=== PATIENT | male | born 1945 | race Asian ===

== ENCOUNTER 2017-04-22 15:38 | Observation (INO) | END 2017-04-24 11:00 | disposition home or self-care (01) ==

== ENCOUNTER 2017-11-05 15:40 | Inpatient (IN) | END 2017-11-10 16:53 | disposition home or self-care (01) | DRG 183 ==

== ENCOUNTER 2018-09-04 21:51 | Inpatient (IN) | payer MEDICARE, OTHER ==
[~2018-09-04] VITALS: Ht 185.4 cm; Wt 74.3 kg
[~2018-09-04 21:51] MED LIST: ATOR40TA68 PO; CANA1TAB3 PO; CLOP75TA27 PO; DUTA0.5C PO; FAMO20TA18 PO; ICOS1CAP PO; ISOS30TA67 PO; METO-335 PO; RANO10002 PO; SITA100T11 PO; VALS80TA2 PO
--- NOTE | 2018-09-04 22:12 | ERD ---
ER Documentation Chief Complaint Chief Complaint CP that HPI This is a 73-year-old male with a history of diabetes, and coronary disease who presents for evaluation of chest pain. Patient states that his symptoms have been exertional on and off for the last 3 days. When they occur they last several minutes, he denies any shortness of breath, he has not had any wheezing, no leg swelling. He does endorse some palpitations. He does not know if he has a history of atrial fibrillation. ROS All systems reviewed and are negative except as per history of present illness. Medications Home Meds Reported Medications Dutasteride* (Avodart*) 0.5 Mg Capsule, 0.5 MG PO DAILY, CAP 04/22/17 Sitagliptin* (Januvia*) 100 Mg Tablet, 100 MG PO DAILY, #30 TAB 04/22/17 Ranolazine* (Ranexa*) 1,000 Mg Tab.sr.12h, 1000 MG PO Q12, TAB 04/22/17 Icosapent Ethyl (VASCEPA) 1 Gm Capsule, 1 GM PO TID, CAP 04/22/17 Canagliflozin/Metformin HCl (Invokamet 150-500 mg Tablet) 1 Each Tablet, 1 EACH PO BID, #60 TAB 04/22/17 Valsartan* (Diovan*) 80 Mg Tablet, 80 MG PO DAILY, TAB 04/22/17 Metoprolol Succinate* (Toprol XL*) 25 Mg Tab.sr.24h, 25 MG PO DAILY, #30 TAB 04/22/17 Isosorbide Mononitrate* (Isosorbide Mononitrate*) 30 Mg Tab.er.24h, 30 MG PO D AILY, TAB 04/22/17 Famotidine* (Famotidine*) 20 Mg Tablet, 20 MG PO DAILY, #30 TAB 04/22/17 Clopidogrel Bisulfate (Clopidogrel) 75 Mg Tablet, 75 MG PO DAILY, #30 TAB 04/22/17 Atorvastatin* (Atorvastatin*) 40 Mg Tablet, 40 MG PO QHS, #30 TAB 04/22/17 Allergies Allergies: Coded Allergies: No Known Allergy (Verified , 12/02/11) PMhx/Soc History of Surgery: Yes (ANGIOGRAM THREE TIMES) Anesthesia Reaction: No Hx Neurological Disorder: No Hx Respiratory Disorders: No Hx Cardiac Disorders: No (HTN) Hx Psychiatric Problems: No Hx Miscellaneous Medical Probl: No Hx Alcohol Use: No Hx Substance Use: No Hx Tobacco Use: No Physical Exam Vitals Vital Signs Date Temp Pulse Resp B/P (MAP) Pulse Ox O2 O2 Flow FiO2 Time Delivery Rate 09/04/18 97.8 80 14 126/75 100 22:59 (92) 09/04/18 Nasal 2 22:23 Cannula 09/04/18 97.8 135 20 148/60 100 22:20 (89) 09/04/18 97.8 130 20 117/80 100 21:55 (92) Physical Exam Const: No acute distress Head: Atraumatic Eyes: Normal Conjunctiva ENT: Normal External Ears, Nose and Mouth. Neck: Full range of motion. No meningismus. Resp: Clear to auscultation bilaterally, no wheezes rales or rhonchi Cardio: Irregularly irregular, no murmurs Abd: Soft, non tender, non distended. Normal bowel sounds Skin: No petechiae or rashes Back: No midline or flank tenderness Ext: No cyanosis, or edema Neur: Awake and alert Psych: Normal Mood and Affect Result Diagram: 09/04/185 09/04/182214 Results 24 hrs Laboratory Tests Test 09/04/18 22:15 White Blood Count 5.9 10^3/ul Red Blood Count 5.00 10^6/ul Hemoglobin 14.6 g/dl Hematocrit 43.4 % Mean Corpuscular Volume 86.8 fl Mean Corpuscular Hemoglobin 29.2 pg Mean Corpuscular Hemoglobin Concent 33.6 g/dl Red Cell Distribution Width 13.2 % Platelet Count 179 10^3/UL Mean Platelet Volume 9.9 fl Immature Granulocytes % 0.300 % Neutrophils % 55.7 % Lymphocytes % 31.6 % Monocytes % 10.9 % Eosinophils % 1.2 % Basophils % 0.3 % Nucleated Red Blood Cells % 0.0 /100WBC Immature Granulocytes # 0.020 10^3/ul Neutrophils # 3.3 10^3/ul Lymphocytes # 1.9 10^3/ul Monocytes # 0.6 10^3/ul Eosinophils # 0.1 10^3/ul Basophils # 0.0 10^3/ul Nucleated Red Blood Cells # 0.0 10^3/ul Prothrombin Time 13.4 Sec Prothrombin Time Ratio 1.0 INR International Normalized Ratio 1.01 Sodium Level 139 mmol/L Potassium Level 4.2 mmol/L Chloride Level 102 mmol/L Carbon Dioxide Level 23 mmol/L Anion Gap 14 Blood Urea Nitrogen 14 mg/dl Creatinine 0.79 mg/dl Est Glomerular Filtrat Rate mL/min mL/min Glucose Level 151 mg/dl Calcium Level 9.9 mg/dl Total Bilirubin 0.6 mg/dl Direct Bilirubin 0.00 mg/dl Indirect Bilirubin 0.6 mg/dl Aspartate Amino Transf (AST/SGOT) 24 IU/L Alanine Aminotransferase (ALT/SGPT) 20 IU/L Alkaline Phosphatase 87 IU/L Troponin I < 0.012 ng/ml B-Type Natriuretic Peptide 158 PG/ML Total Protein 7.6 g/dl Albumin 4.5 g/dl Globulin 3.10 g/dl Albumin/Globulin Ratio 1.45 Current Medications Medications Dose Sig/Ken[place] Start Time Status Last (Trade) Ordered Route PRN Stop Time Admin Dose Reason Admin Aspirin 325 mg ONCE STAT 09/04/18 DC 09/04/18 (Aspirin) PO 22:38 22:43 09/04/18 22:39 Procedures/MDM This is a 73-year-old male who presents for evaluation of intermittent chest pain palpitations. His chest pain improved in the ED, he has a very strong history of coronary artery disease, thus he will require admission for acute coronary syndrome work-up, is unclear via history of atrial fibrillation, as the patient is a poor historian. His primary money room supervisor is Dr Laureano. by., patient will be admitted to telemetry. Accepting Care Team: Current data and ongoing care discussed. Primary: Brian Consulting: None Outstanding Data: none EKG: Rate/Rhythm: Irregularly irregular rate, with rate of 132 QRS, ST, T-waves: No changes consistent w/ acute ischemia Impression: No evidence of ischemia atrial fibrillation noted Departure Diagnosis: Primary Impression: Chest pain Chest pain type: unspecified Qualified Codes: R07.9 - Chest pain, unspecified Condition: Stable TWYLA BOSS MD Sep 04, 2018 22:12
[2018-09-04] MEDS ORDERED: ASPIRIN 325 MG TAB PO STA (22:38)
[2018-09-05] MEDS ORDERED: HEPARIN 25000 UNITS/250 ML 250 ML IV ONE (00:34)
[2018-09-05] MEDS ORDERED: HEPARIN 1000 UNITS/ML 10 ML INJ IV ONE (00:37)
[2018-09-05] MEDS ORDERED: ONDANSETRON 4 MG INJ IV PRN (01:00)
[2018-09-05] MEDS ORDERED: ACETAMINOPHEN 325 MG TAB PO PRN (01:00)
[2018-09-05 02:30] VITALS: BP 138/70; PULSE 69; RESP 20
[2018-09-05 03:03] VITALS: Ht 185.4 cm; Wt 74.3 kg
[2018-09-05 04:00] VITALS: BP 108/60; PULSE 67; RESP 20
[2018-09-05 07:09] VITALS: BP 150/64; PULSE 67; RESP 19
--- NOTE | 2018-09-05 09:51 | HP ---
Date/Time of Note Date/Time of Note DATE: 09/05/18 TIME: 09:48 Assessment/Plan VTE Prophylaxis Risk score (from [facility])>0 risk: 2 SCD applied (from [facility]): No SCD contraindicated: other Pharmacological prophylaxis: LMWH Lines/Catheters IV Catheter Type (from [facility]): Saline Lock Assessment/Plan Hospital Course 1) chest pain - troponins are negative - cardiology consult 2) diabetes - monitor blood sugar - continue home meds 3) hypertension - blood pressure stable Result Diagram: 09/05/18 0545 09/05/18 0544 Results 24hrs Laboratory Tests Test 09/04/18 22:15 09/05/18 05:44 09/05/18 05:45 White Blood Count 5.9 # 3.8 #L Red Blood Count 5.00 4.58 L Hemoglobin 14.6 13.6 L Hematocrit 43.4 40.1 L Mean Corpuscular Volume 86.8 87.6 Mean Corpuscular Hemoglobin 29.2 29.7 Mean Corpuscular Hemoglobin Concent 33.6 33.9 Red Cell Distribution Width 13.2 13.3 Platelet Count 179 159 Mean Platelet Volume 9.9 10.2 Immature Granulocytes % 0.300 0.300 Neutrophils % 55.7 34.9 L Lymphocytes % 31.6 50.7 Monocytes % 10.9 11.5 H Eosinophils % 1.2 2.1 Basophils % 0.3 0.5 Nucleated Red Blood Cells % 0.0 0.0 Immature Granulocytes # 0.020 0.010 Neutrophils # 3.3 1.3 L Lymphocytes # 1.9 1.9 Monocytes # 0.6 0.4 Eosinophils # 0.1 0.1 Basophils # 0.0 0.0 Nucleated Red Blood Cells # 0.0 0.0 Prothrombin Time 13.4 Prothrombin Time Ratio 1.0 INR International Normalized Ratio 1.01 Sodium Level 139 141 Potassium Level 4.2 4.0 Chloride Level 102 105 Carbon Dioxide Level 23 28 Anion Gap 14 H 8 Blood Urea Nitrogen 14 16 Creatinine 0.79 0.73 Est Glomerular Filtrat Rate mL/min Glucose Level 151 136 Calcium Level 9.9 9.4 Total Bilirubin 0.6 Direct Bilirubin 0.00 Indirect Bilirubin 0.6 Aspartate Amino Transf (AST/SGOT) 24 Alanine Aminotransferase (ALT/SGPT) 20 Alkaline Phosphatase 87 Troponin I < 0.012 < 0.012 B-Type Natriuretic Peptide 158 H Total Protein 7.6 Albumin 4.5 Globulin 3.10 Albumin/Globulin Ratio 1.45 Creatine Kinase 42 Creatine Kinase Index 2.2 Creatinine Kinase MB (Mass) 0.94 HPI/ROS Admit Date/Time Admit Date/Time Sep 05, 2018 at 01:41 Hx of Present Illness Patient with hypertension, hypercholesterolemia, diabetes with history of coronary artery disease comes in to the emergency with pressure chest pain x1d. Patient has had previous admissions for the same and was treated with angioplasty and stent placement in the past. Patient currently denies any chest pain. PMH/Family/Social Past Medical History Medical History: diabetes, high cholesterol, hypertension Medications Current Medications Atorvastatin Calcium (Lipitor) 40 mg QHS PO ; Start 09/05/18 at 21:00 Clopidogrel Bisulfate (plaVIX) 75 mg DAILY PO ; Start 09/05/18 at 10:00 Dutasteride (Avodart) 0.5 mg DAILY PO ; Start 09/06/18 at 10:00 Famotidine (Pepcid) 20 mg DAILY PO ; Start 09/05/18 at 10:00 Isosorbide Mononitrate (Imdur) 30 mg DAILY PO ; Start 09/05/18 at 10:00 Metoprolol Succinate (Toprol Xl) 25 mg DAILY PO ; Start 09/05/18 at 10:00 Ranolazine (Ranexa) 1,000 mg Q12 PO ; Start 09/05/18 at 10:00 Linagliptin (Tradjenta) 5 mg DAILY PO ; Start 09/05/18 at 10:00 Losartan Potassium (Cozaar) 50 mg DAILY PO ; Start 09/05/18 at 10:00 Coded Allergies: No Known Allergy (Verified , 12/02/11) Family History Significant Family History: COPD, diabetes Social History Smoking Status: Never smoker Exam/Review of Systems Vital Signs Vitals Vital Signs Date Temp Pulse Resp B/P (MAP) Pulse Ox O2 O2 Flow FiO2 Time Delivery Rate 09/05/18 Nasal 2.0 07:40 Cannula 09/05/18 98.1 67 19 150/64 98 07:09 (92) Intake and Output 09/04/18 09/04/18 09/05/18 1515:00 23:00 07:00 IntakeIntake Total 0 ml OutputOutput Total 700 ml BalanceBalance -700 ml Exam Constitutional: well developed Head: normocephalic, atraumatic Neck: supple Respiratory: clear to auscultation Cardiovascular: regular rate and rhythm Gastrointestinal: soft, non-tender Extremities: normal pulses SAMSON FREEMAN Sep 05, 2018 09:51
[2018-09-05] MEDS: RANOLAZINE (SR) 500 MG TAB PO SCH ×2 (10:06→21:04)
[2018-09-05] MEDS: ISOSORBIDE MONONITRATE(SR)30 MG TAB PO SCH (10:07)
[2018-09-05] MEDS: CLOPIDOGREL 75 MG TAB PO SCH (10:07)
[2018-09-05] MEDS: LOSARTAN 50 MG TAB PO SCH (10:07)
[2018-09-05] MEDS: FAMOTIDINE 20 MG TAB PO SCH (10:07)
[2018-09-05] MEDS: METOPROLOL (XL) 25 MG TAB PO SCH (10:07)
[2018-09-05] MEDS: LINAGLIPTIN 5 MG TABLET PO SCH (10:07)
[2018-09-05 11:05] VITALS: BP 119/59; PULSE 70; RESP 20
[2018-09-05] MEDS: INSULIN ASPART [NOVOLOG] 3 ML PEN SC SCH ×2 (12:11→16:45)
[2018-09-05 15:00] VITALS: BP 99/54; PULSE 69; RESP 18
--- NOTE | 2018-09-05 15:33 | CONS ---
Assessment/Plan Assessment/Plan Hospital Course (Demo Recall) 1. Atrial fibrillation with ventricular response: Appears to be short episode has converted back to sinus rhythm. 2. Chest pain most likely related to above 3. Coronary artery disease 4. History of PCI 5. Hypertension 6. Diabetes 7. Dyslipidemia Recommendation: Continue with the beta-kiana. Continue with antiplatelet with Plavix for now Statin will be continued AK has been ruled out Echo has already been done as an outpatient in the office that showed normal LV systolic function Diabetic management as per internal medicine Electrolyte to be corrected as needed We will monitor on telemetry for now. DC planning tomorrow if remains stable Thank you for his referral. We will continue to follow along with you SURESH WESTBROOK MD [facility] Consultation Date/Type/Reason Admit Date/Time Sep 05, 2018 at 01:41 Date of Consultation: Sep 05, 2018 Type of Consult Cardiology Reason for Consultation CHEST PAIN AFIB. Requesting Provider: SAMSON FREEMAN Date/Time of Note DATE: 09/05/18 TIME: 15:22 Hx of Present Illness Interventional cardiology consultation note Chief complaint: Chest pain Reason for consult: chest pain and AFIB. History of present illness: Thank you for this referral. 73-year-old [place] gentleman who is very well-known to me from office visit as well as outpatient work-up who presented to emergency room last night with complaint of chest pain. Patient with no palpitation but had complaint of chest pain yesterday came in was noted to be in atrial fibrillation rapid ventricular response. Patient has converted in the emergency room to sinus rhy thm but since then has remained in sinus rhythm. His chest pain also resolved in the emergency room as well. Troponin have been negative so far. He reports to me that he has been able to walk quite a bit with no chest pain or pressure. He said that his medications were changed with his primary care physician recently but has not followed all those changes recently Allergies: No known drug allergies Past medical history: 1. Coronary artery disease with history of myocardial infarction, history of PCI of the obtuse marginal and LAD 2. Diabetes 3. Hypertension 4. Dyslipidemia 5. History of chronic chest pain past surgical history: 12/02/11: Left heart catheterization/coronary angiogram showed: Left main with 30-40% distal calcified lesion. LAD approximately 40-50% stenosis of the mid level 30% in stent stenosis. Left cecum the stent was patent. RCA was dominant with about 40% stenosis. 02/18/11: PCI obtuse marginal #2.5 x 8 mm Promus drug-eluting stent PCI of the LAD 3 x 33 mm and 2.75 x 33 mm Cypher drug-eluting stent In about year of 1999 he also had another PCI of unknown vessel Family history: His father had an AK in his 70s Social history patient does not smoke or drink Medications were reviewed as per medical reconciliation sheet Review of system: Patient denies all others except for above-mentioned Past Medical History Home Meds Reported Medications Dutasteride* (Avodart*) 0.5 Mg Capsule, 0.5 MG PO DAILY, CAP 04/22/17 Sitagliptin* (Januvia*) 100 Mg Tablet, 100 MG PO DAILY, #30 TAB 04/22/17 Ranolazine* (Ranexa*) 1,000 Mg Tab.sr.12h, 1000 MG PO Q12, TAB 04/22/17 Icosapent Ethyl (VASCEPA) 1 Gm Capsule, 1 GM PO TID, CAP 04/22/17 Canagliflozin/Metformin HCl (Invokamet 150-500 mg Tablet) 1 Each Tablet, 1 EACH PO BID, #60 TAB 04/22/17 Valsartan* (Diovan*) 80 Mg Tablet, 80 MG PO DAILY, TAB 04/22/17 Metoprolol Succinate* (Toprol XL*) 25 Mg Tab.sr.24h, 25 MG PO DAILY, #30 TAB 04/22/17 Isosorbide Mononitrate* (Isosorbide Mononitrate*) 30 Mg Tab.er.24h, 30 MG PO DAILY, TAB 04/22/17 Famotidine* (Famotidine*) 20 Mg Tablet, 20 MG PO DAILY, #30 TAB 04/22/17 Clopidogrel Bisulfate (Clopidogrel) 75 Mg Tablet, 75 MG PO DAILY, #30 TAB 04/22/17 Atorvastatin* (Atorvastatin*) 40 Mg Tablet, 40 MG PO QHS, #30 TAB 04/22/17 Medications Current Medications Atorvastatin Calcium (Lipitor) 40 mg QHS PO ; Start 09/05/18 at 21:00 Clopidogrel Bisulfate (plaVIX) 75 mg DAILY PO Last administered on 09/05/18at 10:07; Admin Dose 75 MG; Start 09/05/18 at 10:00 Dutasteride (Avodart) 0.5 mg DAILY PO ; Start 09/06/18 at 10:00 Famotidine (Pepcid) 20 mg DAILY PO Last administered on 09/05/18at 10:07; Admin Dose 20 MG; Start 09/05/18 at 10:00 Isosorbide Mononitrate (Imdur) 30 mg DAILY PO Last administered on 09/05/18at 10:07; Admin Dose 30 MG; Start 09/05/18 at 10:00 Metoprolol Succinate (Toprol Xl) 25 mg DAILY PO Last administered on 09/05/18 10:07; Admin Dose 25 MG; Start 09/05/18 at 10:00 Ranolazine (Ranexa) 1,000 mg Q12 PO Last administered on 09/05/18 10:06; Admin Dose 1,000 MG; Start 09/05/18 at 10:00 Linagliptin (Tradjenta) 5 mg DAILY PO Last administered on 09/05/18 10:07; Admin Dose 5 MG; Start 09/05/18 at 10:00 Losartan Potassium (Cozaar) 50 mg DAILY PO Last administered on 09/05/18 10:07; Admin Dose 50 MG; Start 09/05/18 at 10:00 Diagnostic Test (Pha) (Accu-Chek) 1 ea 02 XX ; Start 09/06/18 at 02:00 Insulin Aspart (Novolog Insulin Pen) 5 unit WITH MEALS SC Last administered on 09/05/18at 12:11; Admin Dose 5 UNIT; Start 09/05/18 at 12:00 Enoxaparin Sodium (Lovenox) 30 mg DAILY SC ; Start 09/06/18 at 09:00 Allergies: Coded Allergies: No Known Allergy (Verified , 12/02/11) Social History Smoking Status: Never smoker Exam/Review of Systems Vital Signs Vitals Vital Signs Date Temp Pulse Resp B/P (MAP) Pulse Ox O2 O2 Flow FiO2 Time Delivery Rate 09/05/18 98.7 69 18 99/54 (69) 98 Room Air 15:00 09/05/18 2.0 07:40 Intake and Output 09/04/18 09/04/18 09/05/18 1515:00 23:00 07:00 IntakeIntake Total 0 ml OutputOutput Total 700 ml BalanceBalance -700 ml Exam Exam General: no acute distress HEENT: NC/AT. pupils are equal. round. NECK: NO JVD. no stridor. CV: RRR. systolic murmur; no gallop or rubs. PULM: no wheezing or rhonchi. GI: SOFT, NT, ND, no rebound or guarding Extremity: trace B/L LE edema. no clubbing. neuro: awake and alert, OX3. Psych: calm and pleasant rectal: deferred : normal EKG was personally with atrial fibrillation RVR nonspecific T wave abnormalities Labs Result Diagram: 09/05/18 0545 09/05/18 0544 Results 24hrs Laboratory Tests Test 09/04/18 22:15 09/05/18 05:44 09/05/18 05:45 09/05/18 10:10 White Blood Count 5.9 # 3.8 #L Red Blood Count 5.00 4.58 L Hemoglobin 14.6 13.6 L Hematocrit 43.4 40.1 L Mean Corpuscular 86.8 87.6 Volume Mean Corpuscular 29.2 29.7 Hemoglobin Mean Corpuscular 33.6 33.9 Hemoglobin Concent Red Cell 13.2 13.3 Distribution Width Platelet Count 179 159 Mean Platelet Volume 9.9 10.2 Immature 0.300 0.300 Granulocytes % Neutrophils % 55.7 34.9 L Lymphocytes % 31.6 50.7 Monocytes % 10.9 11.5 H Eosinophils % 1.2 2.1 Basophils % 0.3 0.5 Nucleated Red Blood 0.0 0.0 Cells % Immature 0.020 0.010 Granulocytes # Neutrophils # 3.3 1.3 L Lymphocytes # 1.9 1.9 Monocytes # 0.6 0.4 Eosinophils # 0.1 0.1 Basophils # 0.0 0.0 Nucleated Red Blood 0.0 0.0 Cells # Prothrombin Time 13.4 Prothrombin Time 1.0 Ratio INR International 1.01 Normalized Ratio Sodium Level 139 141 Potassium Level 4.2 4.0 Chloride Level 102 105 Carbon Dioxide Level 23 28 Anion Gap 14 H 8 Blood Urea Nitrogen 14 16 Creatinine 0.79 0.73 Est Glomerular Filtrat Rate mL/min Glucose Level 151 136 Calcium Level 9.9 9.4 Total Bilirubin 0.6 Direct Bilirubin 0.00 Indirect Bilirubin 0.6 Aspartate Amino 24 Transf (AST/SGOT) Alanine 20 Aminotransferase (AL T/SGPT) Alkaline Phosphatase 87 Troponin I < 0.012 < 0.012 < 0.012 B-Type Natriuretic 158 H Peptide Total Protein 7.6 Albumin 4.5 Globulin 3.10 Albumin/Globulin 1.45 Ratio Creatine Kinase 42 34 Creatine Kinase 2.2 2.0 Index Creatinine Kinase MB 0.94 0.69 (Mass) Test 09/05/18 11:48 Bedside Glucose 203 Medications Medications Current Medications Atorvastatin Calcium (Lipitor) 40 mg QHS PO ; Start 09/05/18 at 21:00 Clopidogrel Bisulfate (plaVIX) 75 mg DAILY PO Last administered on 09/05/18at 10:07; Admin Dose 75 MG; Start 09/05/18 at 10:00 Dutasteride (Avodart) 0.5 mg DAILY PO ; Start 09/06/18 at 10:00 Famotidine (Pepcid) 20 mg DAILY PO Last administered on 09/05/18at 10:07; Admin Dose 20 MG; Start 09/05/18 at 10:00 Isosorbide Mononitrate (Imdur) 30 mg DAILY PO Last administered on 09/05/18at 10:07; Admin Dose 30 MG; Start 09/05/18 at 10:00 Metoprolol Succinate (Toprol Xl) 25 mg DAILY PO Last administered on 09/05/18 10:07; Admin Dose 25 MG; Start 09/05/18 at 10:00 Ranolazine (Ranexa) 1,000 mg Q12 PO Last administered on 09/05/18at 10:06; Admin Dose 1,000 MG; Start 09/05/18 at 10:00 Linagliptin (Tradjenta) 5 mg DAILY PO Last administered on 09/05/18 10:07; Admin Dose 5 MG; Start 09/05/18 at 10:00 Losartan Potassium (Cozaar) 50 mg DAILY PO Last administered on 09/05/18 10:07; Admin Dose 50 MG; Start 09/05/18 at 10:00 Diagnostic Test (Pha) (Accu-Chek) 1 ea 02 XX ; Start 09/06/18 at 02:00 Insulin Aspart (Novolog Insulin Pen) 5 unit WITH MEALS SC Last administered on 09/05/18at 12:11; Admin Dose 5 UNIT; Start 09/05/18 at 12:00 Enoxaparin Sodium (Lovenox) 30 mg DAILY SC ; Start 09/06/18 at 09:00 SURESH WESTBROOK MD Sep 05, 2018 15:33
[2018-09-05 20:00] VITALS: BP 92/54; PULSE 69; RESP 20
[2018-09-05] MEDS: ATORVASTATIN 40 MG TAB PO SCH (21:04)
[2018-09-06] VITALS (7 sets, daily range): BP systolic 92–133; BP diastolic 55–64; PULSE 57–66; RESP 18–20
[2018-09-06] MEDS: ACCU-CHEK XX SCH (02:00)
[2018-09-06] MEDS: LOSARTAN 50 MG TAB PO SCH (07:55)
[2018-09-06] MEDS: FAMOTIDINE 20 MG TAB PO SCH (07:56)
[2018-09-06] MEDS: LINAGLIPTIN 5 MG TABLET PO SCH (07:56)
[2018-09-06] MEDS: RANOLAZINE (SR) 500 MG TAB PO SCH ×2 (07:56→21:30)
[2018-09-06] MEDS: METOPROLOL (XL) 25 MG TAB PO SCH (07:56)
[2018-09-06] MEDS: CLOPIDOGREL 75 MG TAB PO SCH (07:57)
[2018-09-06] MEDS: ISOSORBIDE MONONITRATE(SR)30 MG TAB PO SCH (07:57)
[2018-09-06] MEDS: INSULIN ASPART [NOVOLOG] 3 ML PEN SC SCH ×3 (08:11→16:58)
[2018-09-06] MEDS ORDERED: NON-FORMULARY/PATIENT OWN MED (Valsartan* (Diovan*) 80 MG) PO SCH (09:00)
[2018-09-06] MEDS ORDERED: NON-FORMULARY/PATIENT OWN MED (Sitagliptin* (Januvia*) 100 MG) PO SCH (09:00)
[2018-09-06] MEDS: DUTASTERIDE 0.5 MG CAP PO SCH (09:57)
[2018-09-06] MEDS: ENOXAPARIN 30 MG/0.3 ML SYG SC SCH (10:00)
--- NOTE | 2018-09-06 10:55 | PN ---
Date/Time of Note Date/Time of Note DATE: 09/06/18 TIME: 10:54 Assessment/Plan VTE Prophylaxis Risk score (from Ns)>0 risk: 2 SCD applied (from Ns): Yes Pharmacological prophylaxis: LMWH Lines/Catheters IV Catheter Type (from Nrsg): Saline Lock Assessment/Plan Hospital Course 1) chest pain - troponins are negative - appreciate cardiac input 2) diabetes - monitor blood sugar - continue home meds 3) hypertension - blood pressure stable Result Diagram: 09/06/18 0500 09/06/18 0500 Results 24hrs Laboratory Tests Test 09/05/18 11:48 09/05/18 16:42 09/05/18 21:03 09/06/18 02:27 Bedside Glucose 203 135 134 174 Test 09/06/18 05:00 09/06/18 07:55 White Blood Count 4.5 L Red Blood Count 4.67 L Hemoglobin 13.7 L Hematocrit 40.9 L Mean Corpuscular 87.6 Volume Mean Corpuscular 29.3 Hemoglobin Mean Corpuscular 33.5 Hemoglobin Concent Red Cell 13.7 Distribution Width Platelet Count 183 Mean Platelet Volume 10.5 H Immature 0.400 Granulocytes % Neutrophils % 40.7 Lymphocytes % 44.2 Monocytes % 12.9 H Eosinophils % 1.6 Basophils % 0.2 Nucleated Red Blood 0.0 Cells % Immature 0.020 Granulocytes # Neutrophils # 1.8 Lymphocytes # 2.0 Monocytes # 0.6 Eosinophils # 0.1 Basophils # 0.0 Nucleated Red Blood 0.0 Cells # Sodium Level 141 Potassium Level 4.2 Chloride Level 102 Carbon Dioxide Level 26 Anion Gap 13 Blood Urea Nitrogen 18 Creatinine 0.71 Est Glomerular Filtrat Rate mL/min Glucose Level 125 Calcium Level 9.6 Magnesium Level 2.0 Total Bilirubin 0.5 Direct Bilirubin 0.00 Indirect Bilirubin 0.5 Aspartate Amino 18 Transf (AST/SGOT) Alanine 17 Aminotransferase (AL T/SGPT) Alkaline Phosphatase 75 Creatine Kinase 26 Creatine Kinase 1.4 Index Creatinine Kinase MB 0.36 (Mass) Troponin I < 0.012 B-Type Natriuretic 65 Peptide Total Protein 6.6 # Albumin 3.9 Globulin 2.70 Albumin/Globulin 1.44 Ratio Triglycerides Level 122 Cholesterol Level 114 LDL Cholesterol, 50 Calculated HDL Cholesterol 40 Cholesterol/HDL 2.8 Ratio Thyroid Stimulating 2.180 Hormone (TSH) Free Thyroxine 0.95 Bedside Glucose 136 Subjective 24 Hr Interval Summary Free Text/Dictation Patient complains of dizziness and still have intermittent chest pains Exam/Review of Systems Exam Vitals Vital Signs Date Temp Pulse Resp B/P (MAP) Pulse Ox O2 O2 Flow FiO2 Time Delivery Rate 09/06/18 Nasal 2.0 07:12 Cannula 09/06/18 98.1 57 20 103/55 99 07:10 (71) Intake and Output 09/05/18 09/05/18 09/06/18 1515:00 23:00 07:00 IntakeIntake Total 1800 ml 50 ml OutputOutput Total 1301 ml 1 ml BalanceBalance 499 ml 49 ml Constitutional: well developed Head: normocephalic, atraumatic Neck: supple Respiratory: diminished breath sounds Cardiovascular: regular rate and rhythm Gastrointestinal: soft, non-tender Extremities: normal pulses Results Results 24hrs Laboratory Tests Test 09/05/18 11:48 09/05/18 16:42 09/05/18 21:03 09/06/18 02:27 Bedside Glucose 203 135 134 174 Test 09/06/18 05:00 09/06/18 07:55 White Blood Count 4.5 L Red Blood Count 4.67 L Hemoglobin 13.7 L Hematocrit 40.9 L Mean Corpuscular 87.6 Volume Mean Corpuscular 29.3 Hemoglobin Mean Corpuscular 33.5 Hemoglobin Concent Red Cell 13.7 Distribution Width Platelet Count 183 Mean Platelet Volume 10.5 H Immature 0.400 Granulocytes % Neutrophils % 40.7 Lymphocytes % 44.2 Monocytes % 12.9 H Eosinophils % 1.6 Basophils % 0.2 Nucleated Red Blood 0.0 Cells % Immature 0.020 Granulocytes # Neutrophils # 1.8 Lymphocytes # 2.0 Monocytes # 0.6 Eosinophils # 0.1 Basophils # 0.0 Nucleated Red Blood 0.0 Cells # Sodium Level 141 Potassium Level 4.2 Chloride Level 102 Carbon Dioxide Level 26 Anion Gap 13 Blood Urea Nitrogen 18 Creatinine 0.71 Est Glomerular Filtrat Rate mL/min Glucose Level 125 Calcium Level 9.6 Magnesium Level 2.0 Total Bilirubin 0.5 Direct Bilirubin 0.00 Indirect Bilirubin 0.5 Aspartate Amino 18 Transf (AST/SGOT) Alanine 17 Aminotransferase (AL T/SGPT) Alkaline Phosphatase 75 Creatine Kinase 26 Creatine Kinase 1.4 Index Creatinine Kinase MB 0.36 (Mass) Troponin I < 0.012 B-Type Natriuretic 65 Peptide Total Protein 6.6 # Albumin 3.9 Globulin 2.70 Albumin/Globulin 1.44 Ratio Triglycerides Level 122 Cholesterol Level 114 LDL Cholesterol, 50 Calculated HDL Cholesterol 40 Cholesterol/HDL 2.8 Ratio Thyroid Stimulating 2.180 Hormone (TSH) Free Thyroxine 0.95 Bedside Glucose 136 Medications Medication Current Medications Atorvastatin Calcium (Lipitor) 40 mg QHS PO Last administered on 09/05/18 21:04; Admin Dose 40 MG; Start 09/05/18 at 21:00 Clopidogrel Bisulfate (plaVIX) 75 mg DAILY PO Last administered on 09/06/18 07:57; Admin Dose 75 MG; Start 09/05/18 at 10:00 Dutasteride (Avodart) 0.5 mg DAILY PO Last administered on 09/06/18 09:57; Admin Dose 0.5 MG; Start 09/06/18 at 10:00 Famotidine (Pepcid) 20 mg DAILY PO Last administered on 09/06/18 07:56; Admin Dose 20 MG; Start 09/05/18 at 10:00 Isosorbide Mononitrate (Imdur) 30 mg DAILY PO Last administered on 09/05/18 10:07; Admin Dose 30 MG; Start 09/05/18 at 10:00 Metoprolol Succinate (Toprol Xl) 25 mg DAILY PO Last administered on 09/05/18 10:07; Admin Dose 25 MG; Start 09/05/18 at 10:00 Ranolazine (Ranexa) 1,000 mg Q12 PO Last administered on 09/06/18 07:56; Admin Dose 1,000 MG; Start 09/05/18 at 10:00 Linagliptin (Tradjenta) 5 mg DAILY PO Last administered on 09/06/18 07:56; Admin Dose 5 MG; Start 09/05/18 at 10:00 Losartan Potassium (Cozaar) 50 mg DAILY PO Last administered on 09/05/18 10:07; Admin Dose 50 MG; Start 09/05/18 at 10:00 Diagnostic Test (Pha) (Accu-Chek) 1 ea 02 XX ; Start 09/06/18 at 02:00 Insulin Aspart (Novolog Insulin Pen) 5 unit WITH MEALS SC Last administered on 09/06/18 08:11; Admin Dose 5 UNIT; Start 09/05/18 at 12:00 Enoxaparin Sodium (Lovenox) 30 mg DAILY SC Last administered on 09/06/18at 10: 00; Admin Dose 30 MG; Start 09/06/18 at 09:00 SAMSON FREEMAN Sep 06, 2018 10:55
--- NOTE | 2018-09-06 13:55 | CONS ---
Consult Date/Type/Reason Admit Date/Time Sep 05, 2018 at 01:41 Initial Consult Date 09/05/18 Type of Consultation: CV Requesting Provider: SAMSON FREEMAN Date/Time of Note DATE: 09/06/18 TIME: 13:53 Subjective Cardiology follow-up progress note Subjective: Discussed with the staff and telemetry was reviewed. Patient with no chest pain or pressure. Patient however complains of palpitation this morning. Telemetry was reviewed no evidence of atrial fibrillation or significant arrhythmia during the time that he was complaining of palpitation though. Patient complains of lightheadedness when he stands up. Blood pressure has been on the low side Objective: General: no acute distress HEENT: NC/AT. pupils are equal. round. NECK: NO JVD. no stridor. CV: RRR. systolic murmur; no gallop or rubs. PULM: no wheezing or rhonchi. GI: SOFT, NT, ND, no rebound or guarding Extremity: trace B/L LE edema. no clubbing. neuro: awake and alert, OX3. Psych: Appears anxious but pleasant rectal: deferred : normal Objective Vitals Vital Signs Date Temp Pulse Resp B/P (MAP) Pulse Ox O2 O2 Flow FiO2 Time Delivery Rate 09/06/18 97.6 65 18 105/55 95 Nasal 11:08 (72) Cannula 09/06/18 2.0 07:12 Intake and Output 09/05/18 09/05/18 09/06/18 1515:00 23:00 07:00 IntakeIntake Total 1800 ml 50 ml OutputOutput Total 1301 ml 1 ml BalanceBalance 499 ml 49 ml Results/Medications Result Diagram: 09/06/18 0500 09/06/18 0500 Results 24 hrs Laboratory Tests Test 09/05/18 16:42 09/05/18 21:03 09/06/18 02:27 09/06/18 05:00 Bedside Glucose 135 134 174 White Blood Count 4.5 L Red Blood Count 4.67 L Hemoglobin 13.7 L Hematocrit 40.9 L Mean Corpuscular 87.6 Volume Mean Corpuscular 29.3 Hemoglobin Mean Corpuscular 33.5 Hemoglobin Concent Red Cell 13.7 Distribution Width Platelet Count 183 Mean Platelet Volume 10.5 H Immature 0.400 Granulocytes % Neutrophils % 40.7 Lymphocytes % 44.2 Monocytes % 12.9 H Eosinophils % 1.6 Basophils % 0.2 Nucleated Red Blood 0.0 Cells % Immature 0.020 Granulocytes # Neutrophils # 1.8 Lymphocytes # 2.0 Monocytes # 0.6 Eosinophils # 0.1 Basophils # 0.0 Nucleated Red Blood 0.0 Cells # Sodium Level 141 Potassium Level 4.2 Chloride Level 102 Carbon Dioxide Level 26 Anion Gap 13 Blood Urea Nitrogen 18 Creatinine 0.71 Est Glomerular Filtrat Rate mL/min Glucose Level 125 Calcium Level 9.6 Magnesium Level 2.0 Total Bilirubin 0.5 Direct Bilirubin 0.00 Indirect Bilirubin 0.5 Aspartate Amino 18 Transf (AST/SGOT) Alanine 17 Aminotransferase (AL T/SGPT) Alkaline Phosphatase 75 Creatine Kinase 26 Creatine Kinase 1.4 Index Creatinine Kinase MB 0.36 (Mass) Troponin I < 0.012 B-Type Natriuretic 65 Peptide Total Protein 6.6 # Albumin 3.9 Globulin 2.70 Albumin/Globulin 1.44 Ratio Triglycerides Level 122 Cholesterol Level 114 LDL Cholesterol, 50 Calculated HDL Cholesterol 40 Cholesterol/HDL 2.8 Ratio Thyroid Stimulating 2.180 Hormone (TSH) Free Thyroxine 0.95 Test 09/06/18 07:55 09/06/18 12:00 Bedside Glucose 136 145 Home Meds Reported Medications Dutasteride* (Avodart*) 0.5 Mg Capsule, 0.5 MG PO DAILY, CAP 04/22/17 Sitagliptin* (Januvia*) 100 Mg Tablet, 100 MG PO DAILY, #30 TAB 04/22/17 Ranolazine* (Ranexa*) 1,000 Mg Tab.sr.12h, 1000 MG PO Q12, TAB 04/22/17 Icosapent Ethyl (VASCEPA) 1 Gm Capsule, 1 GM PO TID, CAP 04/22/17 Canagliflozin/Metformin HCl (Invokamet 150-500 mg Tablet) 1 Each Tablet, 1 EACH PO BID, #60 TAB 04/22/17 Valsartan* (Diovan*) 80 Mg Tablet, 80 MG PO DAILY, TAB 04/22/17 Metoprolol Succinate* (Toprol XL*) 25 Mg Tab.sr.24h, 25 MG PO DAILY, #30 TAB 04/22/17 Isosorbide Mononitrate* (Isosorbide Mononitrate*) 30 Mg Tab.er.24h, 30 MG PO DAILY, TAB 04/22/17 Famotidine* (Famotidine*) 20 Mg Tablet, 20 MG PO DAILY, #30 TAB 04/22/17 Clopidogrel Bisulfate (Clopidogrel) 75 Mg Tablet, 75 MG PO DAILY, #30 TAB 04/22/17 Atorvastatin* (Atorvastatin*) 40 Mg Tablet, 40 MG PO QHS, #30 TAB 04/22/17 Medications Current Medications Atorvastatin Calcium (Lipitor) 40 mg QHS PO Last administered on 09/05/18at 21:04; Admin Dose 40 MG; Start 09/05/18 at 21:00 Clopidogrel Bisulfate (plaVIX) 75 mg DAILY PO Last administered on 09/06/18 07:57; Admin Dose 75 MG; Start 09/05/18 at 10:00 Dutasteride (Avodart) 0.5 mg DAILY PO Last administered on 09/06/18 09:57; Admin Dose 0.5 MG; Start 09/06/18 at 10:00 Famotidine (Pepcid) 20 mg DAILY PO Last administered on 09/06/18 07:56; Admin Dose 20 MG; Start 09/05/18 at 10:00 Isosorbide Mononitrate (Imdur) 30 mg DAILY PO Last administered on 09/05/18 10:07; Admin Dose 30 MG; Start 09/05/18 at 10:00 Metoprolol Succinate (Toprol Xl) 25 mg DAILY PO Last administered on 09/05/18 10:07; Admin Dose 25 MG; Start 09/05/18 at 10:00 Ranolazine (Ranexa) 1,000 mg Q12 PO Last administered on 09/06/18 07:56; Admin Dose 1,000 MG; Start 09/05/18 at 10:00 Linagliptin (Tradjenta) 5 mg DAILY PO Last administered on 09/06/18 07:56; Admin Dose 5 MG; Start 09/05/18 at 10:00 Diagnostic Test (Pha) (Accu-Chek) 1 ea 02 XX ; Start 09/06/18 at 02:00 Insulin Aspart (Novolog Insulin Pen) 5 unit WITH MEALS SC Last administered on 09/06/18 12:07; Admin Dose 5 UNIT; Start 09/05/18 at 12:00 Enoxaparin Sodium (Lovenox) 30 mg DAILY SC Last administered on 6/30/19at 10:00; Admin Dose 30 MG; Start 09/06/18 at 09:00 Losartan Potassium (Cozaar) 12.5 mg DAILY PO ; Start 09/07/18 at 09:00 Assessment/Plan Hospital Course (Demo Recall) 1. Atrial fibrillation with ventricular response: Appears to be short episode has converted back to sinus rhythm. 2. Chest pain most likely related to above 3. Coronary artery disease 4. History of PCI 5. Hypertension 6. Diabetes 7. Dyslipidemia . Orthostatic symptoms including dizziness Recommendation: Continue with the beta-kiana. Continue with antiplatelet with Plavix for now Statin will be continued [place] has been ruled out Decrease the losartan to 12-1/2 mg only given his low blood pressure Echo has already been done as an outpatient in the office that showed normal LV systolic function Diabetic management as per internal medicine Electrolyte to be corrected as needed A bolus of IV fluids will be given We will monitor on telemetry for now. DC planning when okay from internal medicine standpoint We will follow-up with patient in the office as well Thank you for his referral. We will continue to follow along with you SURESH WESTBROOK MD [facility] SURESH WESTBROOK MD Sep 06, 2018 13:55
[2018-09-06] MEDS ORDERED: SOD CHLORIDE 0.9% 500 ML IV ONE (14:00)
[2018-09-06] MEDS: ATORVASTATIN 40 MG TAB PO SCH (21:30)
[2018-09-07] MEDS: ACCU-CHEK XX SCH (02:00)
[2018-09-07 04:00] VITALS: BP 119/64; PULSE 58; RESP 20
[2018-09-07] MEDS: LINAGLIPTIN 5 MG TABLET PO SCH (07:38)
[2018-09-07 07:43] VITALS: BP 146/63; PULSE 54; RESP 20
[2018-09-07] MEDS: INSULIN ASPART [NOVOLOG] 3 ML PEN SC SCH ×5 (07:43→20:28)
[2018-09-07] MEDS: LOSARTAN 50 MG TAB PO SCH (08:34)
[2018-09-07] MEDS: RANOLAZINE (SR) 500 MG TAB PO SCH ×2 (08:34→20:28)
[2018-09-07] MEDS: DUTASTERIDE 0.5 MG CAP PO SCH (08:34)
[2018-09-07] MEDS: METOPROLOL (XL) 25 MG TAB PO SCH (08:35)
[2018-09-07] MEDS: FAMOTIDINE 20 MG TAB PO SCH (08:35)
[2018-09-07] MEDS: CLOPIDOGREL 75 MG TAB PO SCH (08:35)
[2018-09-07] MEDS: ENOXAPARIN 30 MG/0.3 ML SYG SC SCH (08:39)
[2018-09-07 11:17] VITALS: BP 132/68; PULSE 69; RESP 20
[2018-09-07] MEDS ORDERED: GLUCOSE GEL 15 GRAM TUBE PO PRN ×2 (14:00)
[2018-09-07] MEDS ORDERED: GLUCOSE GEL 15 GRAM TUBE BUCCAL PRN (14:00)
[2018-09-07] MEDS ORDERED: GLUCAGON 1 MG INJ IM PRN (14:00)
[2018-09-07] MEDS ORDERED: DEXTROSE 50% 50 ML SYRINGE IV PRN ×2 (14:00)
[2018-09-07 15:17] VITALS: BP 115/66; PULSE 62; RESP 18
--- NOTE | 2018-09-07 16:32 | QN ---
Documentation Comment As Physician Advisor I have reviewed the chart and have determined that as of today, this patient continues to receive medically necessary care required for the diagnosis and treatment of illness or injury. There has been no unreasonable delay in the rendering of medically necessary services, and this medically necessary care requires a length of stay expected to be greater than two midnights. Additional information gained during the stay now suggests this patient should have been classified as an inpatient at the time of admission, and I will change the status to inpatient to reflect that medical judgment. Besides the notes from the medical providers, the following information was used in this determination: Worsening noncardiac chest pain requiring further workup and investigation including CT chest. Comorbidities of diabetes, hypertension, and coronary artery disease. Please call me at [phone] with questions. MIKY CANADA MD Sep 07, 2018 16:31
--- NOTE | 2018-09-07 17:02 | CONS ---
Consult Date/Type/Reason Admit Date/Time Sep 05, 2018 at 01:41 Initial Consult Date 09/05/18 Type of Consultation: CV Requesting Provider: SAMSON FREEMAN Date/Time of Note DATE: 09/07/18 TIME: 17:00 Subjective Cardiology follow-up progress note Subjective: Discussed with the staff and telemetry was reviewed. Patient with no chest pain or pressure. Patient NO palpitation today. Telemetry was reviewed no evidence of atrial fibrillation or significant arrhythmia now. Patient has less lightheadedness when he stands up. Blood pressure has been better now Objective: General: no acute distress HEENT: NC/AT. pupils are equal. round. NECK: NO JVD. no stridor. CV: RRR. systolic murmur; no gallop or rubs. PULM: no wheezing or rhonchi. GI: SOFT, NT, ND, no rebound or guarding Extremity: trace B/L LE edema. no clubbing. neuro: awake and alert, OX3. Psych: Appears anxious but pleasant rectal: deferred : normal Objective Vitals Vital Signs Date Temp Pulse Resp B/P (MAP) Pulse Ox O2 O2 Flow FiO2 Time Delivery Rate 09/07/18 97.6 62 18 115/66 96 Room Air 15:17 (82) 09/06/18 2.0 19:48 Intake and Output 09/06/18 09/06/18 09/07/18 1515:00 23:00 07:00 IntakeIntake Total 1000 ml 800 ml BalanceBalance 1000 ml 800 ml Results/Medications Result Diagram: 09/06/18 0500 09/06/18 0500 Results 24 hrs Laboratory Tests Test 09/06/18 21:29 09/07/18 07:37 09/07/18 11:43 Bedside Glucose 165 148 164 Home Meds Reported Medications Dutasteride* (Avodart*) 0.5 Mg Capsule, 0.5 MG PO DAILY, CAP 04/22/17 Sitagliptin* (Januvia*) 100 Mg Tablet, 100 MG PO DAILY, #30 TAB 04/22/17 Ranolazine* (Ranexa*) 1,000 Mg Tab.sr.12h, 1000 MG PO Q12, TAB 04/22/17 Icosapent Ethyl (VASCEPA) 1 Gm Capsule, 1 GM PO TID, CAP 04/22/17 Canagliflozin/Metformin HCl (Invokamet 150-500 mg Tablet) 1 Each Tablet, 1 EACH PO BID, #60 TAB 04/22/17 Valsartan* (Diovan*) 80 Mg Tablet, 80 MG PO DAILY, TAB 04/22/17 Metoprolol Succinate* (Toprol XL*) 25 Mg Tab.sr.24h, 25 MG PO DAILY, #30 TAB 04/22/17 Isosorbide Mononitrate* (Isosorbide Mononitrate*) 30 Mg Tab.er.24h, 30 MG PO DAILY, TAB 04/22/17 Famotidine* (Famotidine*) 20 Mg Tablet, 20 MG PO DAILY, #30 TAB 04/22/17 Clopidogrel Bisulfate (Clopidogrel) 75 Mg Tablet, 75 MG PO DAILY, #30 TAB 04/22/17 Atorvastatin* (Atorvastatin*) 40 Mg Tablet, 40 MG PO QHS, #30 TAB 04/22/17 Medications Current Medications Atorvastatin Calcium (Lipitor) 40 mg QHS PO Last administered on 09/06/18at 21:30; Admin Dose 40 MG; Start 09/05/18 at 21:00 Clopidogrel Bisulfate (plaVIX) 75 mg DAILY PO Last administered on 09/07/18at 08:35; Admin Dose 75 MG; Start 09/05/18 at 10:00 Dutasteride (Avodart) 0.5 mg DAILY PO Last administered on 09/07/18at 08:34; Admin Dose 0.5 MG; Start 09/06/18 at 10:00 Famotidine (Pepcid) 20 mg DAILY PO Last administered on 09/07/18 08:35; Admin Dose 20 MG; Start 09/05/18 at 10:00 Metoprolol Succinate (Toprol Xl) 25 mg DAILY PO Last administered on 09/07/18 08:35; Admin Dose 25 MG; Start 09/05/18 at 10:00 Ranolazine (Ranexa) 1,000 mg Q12 PO Last administered on 09/07/18 08:34; Admin Dose 1,000 MG; Start 09/05/18 at 10:00 Linagliptin (Tradjenta) 5 mg DAILY PO Last administered on 09/07/18at 07:38; Admin Dose 5 MG; Start 09/05/18 at 10:00 Diagnostic Test (Pha) (Accu-Chek) 1 ea 02 XX ; Start 09/06/18 at 02:00 Insulin Aspart (Novolog Insulin Pen) 5 unit WITH MEALS SC Last administered on 09/07/18at 11:48; Admin Dose 5 UNIT; Start 09/05/18 at 12:00 Enoxaparin Sodium (Lovenox) 30 mg DAILY SC Last administered on 09/07/18at 08:39; Admin Dose 30 MG; Start 09/06/18 at 09:00 Losartan Potassium (Cozaar) 12.5 mg DAILY PO Last administered on 09/07/18at 08:34; Admin Dose 12.5 MG; Start 09/07/18 at 09:00 Insulin Aspart (Novolog Insulin Pen) NOVOLOG *MILD* ALGORITHM WITH MEALS BEDTIME SC ; Start 09/07/18 at 18:00 Miscellaneous Information 1 ea NOTE XX ; Start 09/07/18 at 14:00 Glucose (Glutose) 15 gm Q15M PRN PO DECREASED GLUCOSE; Start 09/07/18 at 14:00 Glucose (Glutose) 22.5 gm Q15M PRN PO DECREASED GLUCOSE; Start 09/07/18 at 14:00 Dextrose (D50w Syringe) 25 ml Q15M PRN IV DECREASED GLUCOSE; Start 09/07/18 at 14:00 Dextrose (D50w Syringe) 50 ml Q15M PRN IV DECREASED GLUCOSE; Start 09/07/18 at 14:00 Glucagon (Glucagen) 1 mg Q15M PRN IM DECREASED GLUCOSE; Start 09/07/18 at 14:00 Glucose (Glutose) 15 gm Q15M PRN BUCCAL DECREASED GLUCOSE; Start 09/07/18 at 14:00 Assessment/Plan Hospital Course (Demo Recall) 1. Atrial fibrillation with ventricular response: Appears to be short episode has converted back to sinus rhythm. 2. Chest pain most likely related to above 3. Coronary artery disease 4. History of PCI 5. Hypertension 6. Diabetes 7. Dyslipidemia . Orthostatic symptoms including dizziness Recommendation: Continue with the beta-kiana. Continue with antiplatelet with Plavix for now Statin will be continued [place] has been ruled out cont losartan to 12.5 mg qd only given his low blood pressure Echo has already been done as an outpatient in the office that showed normal LV systolic function Diabetic management as per internal medicine Electrolyte to be corrected as needed BP improved after IV fluid DC planning when okay from internal medicine standpoint We will follow-up with patient in the office as well as scheduled already Thank you for his referral. We will continue to follow along with you SURESH WESTBROOK MD [facility] SURESH WESTBROOK MD Sep 07, 2018 17:02
--- NOTE | 2018-09-07 17:41 | PN ---
Date/Time of Note Date/Time of Note DATE: 09/07/18 TIME: 17:34 Assessment/Plan VTE Prophylaxis Risk score (from Nsg)>0 risk: 2 SCD applied (from Nsg): Yes Pharmacological prophylaxis: LMWH Lines/Catheters IV Catheter Type (from Nrsg): Saline Lock Assessment/Plan Hospital Course Patient complains of significant left lower chest pain which is noncardiac in origin, pain is constant, will obtain a CT of the chest for further evaluation. Continue current pain management. PT eval. Assessment/Plan - Atrial fibrillation with ventricular response, short episode, converted back to sinus rhythm. Dr. Laureano is following in cardiology consultation. - Chest pain most likely related to above, [place] ruled out - Coronary artery disease, history of PCI. Continue Plavix. - Diabetes mellitus type 2, new Tradjenta NovoLog, blood sugar is well controlled. - Hypertension, continue Cozaar - Dyslipidemia, continue statin. Further recommendations based on clinical course. Plan of care discussed with Dr. Thurman. Result Diagram: 09/06/18 0500 09/06/18 0500 Results 24hrs Laboratory Tests Test 09/06/18 21:29 09/07/18 07:37 09/07/18 11:43 09/07/18 17:14 Bedside Glucose 165 148 164 188 Exam/Review of Systems Exam Vitals Vital Signs Date Temp Pulse Resp B/P (MAP) Pulse Ox O2 O2 Flow FiO2 Time Delivery Rate 09/07/18 97.6 62 18 115/66 96 Room Air 15:17 (82) 09/06/18 2.0 19:48 Intake and Output 09/06/18 09/06/18 09/07/18 1515:00 23:00 07:00 IntakeIntake Total 1000 ml 800 ml BalanceBalance 1000 ml 800 ml Constitutional: alert, oriented Head: normocephalic Neck: supple Respiratory: clear to auscultation Cardiovascular: regular rate and rhythm Gastrointestinal: soft, non-tender Musculoskeletal: other (Left lower chest pain) Extremities: normal pulses Neurological: nl mental status Results Results 24hrs Laboratory Tests Test 09/06/18 21:29 09/07/18 07:37 09/07/18 11:43 09/07/18 17:14 Bedside Glucose 165 148 164 188 Medications Medication Current Medications Atorvastatin Calcium (Lipitor) 40 mg QHS PO Last administered on 09/06/18 21:30; Admin Dose 40 MG; Start 09/05/18 at 21:00 Clopidogrel Bisulfate (plaVIX) 75 mg DAILY PO Last administered on 09/07/18 08:35; Admin Dose 75 MG; Start 09/05/18 at 10:00 Dutasteride (Avodart) 0.5 mg DAILY PO Last administered on 09/07/18 08:34; Admin Dose 0.5 MG; Start 09/06/18 at 10:00 Famotidine (Pepcid) 20 mg DAILY PO Last administered on 09/07/18 08:35; Admin Dose 20 MG; Start 09/05/18 at 10:00 Metoprolol Succinate (Toprol Xl) 25 mg DAILY PO Last administered on 09/07/18 08:35; Admin Dose 25 MG; Start 09/05/18 at 10:00 Ranolazine (Ranexa) 1,000 mg Q12 PO Last administered on 09/07/18 08:34; Admin Dose 1,000 MG; Start 09/05/18 at 10:00 Linagliptin (Tradjenta) 5 mg DAILY PO Last administered on 09/07/18 07:38; Admin Dose 5 MG; Start 09/05/18 at 10:00 Diagnostic Test (Pha) (Accu-Chek) 1 ea 02 XX ; Start 09/06/18 at 02:00 Insulin Aspart (Novolog Insulin Pen) 5 unit WITH MEALS SC Last administered on 09/07/18 17:21; Admin Dose 5 UNIT; Start 09/05/18 at 12:00 Enoxaparin Sodium (Lovenox) 30 mg DAILY SC Last administered on 09/07/18 08:39; Admin Dose 30 MG; Start 09/06/18 at 09:00 Losartan Potassium (Cozaar) 12.5 mg DAILY PO Last administered on 09/07/18 08:34; Admin Dose 12.5 MG; Start 09/07/18 at 09:00 Insulin Aspart (Novolog Insulin Pen) NOVOLOG *MILD* ALGORITHM WITH MEALS BEDTIME SC Last administered on 09/07/18 17:21; Admin Dose 2 UNIT; Start 09/07/18 at 18:00 Miscellaneous Information 1 ea NOTE XX ; Start 09/07/18 at 14:00 Glucose (Glutose) 15 gm Q15M PRN PO DECREASED GLUCOSE; Start 09/07/18 at 14:00 Glucose (Glutose) 22.5 gm Q15M PRN PO DECREASED GLUCOSE; Start 09/07/18 at 14:00 Dextrose (D50w Syringe) 25 ml Q15M PRN IV DECREASED GLUCOSE; Start 09/07/18 at 14:00 Dextrose (D50w Syringe) 50 ml Q15M PRN IV DECREASED GLUCOSE; Start 09/07/18 at 14:00 Glucagon (Glucagen) 1 mg Q15M PRN IM DECREASED GLUCOSE; Start 09/07/18 at 14:00 Glucose (Glutose) 15 gm Q15M PRN BUCCAL DECREASED GLUCOSE; Start 09/07/18 at 14:00 GABINO ALBERT Sep 07, 2018 17:41
[2018-09-07 20:00] VITALS: BP 126/57; PULSE 62; RESP 18
[2018-09-07] MEDS: ATORVASTATIN 40 MG TAB PO SCH (20:28)
[2018-09-07 23:54] VITALS: BP 123/61; PULSE 64; RESP 20
[2018-09-08] MEDS: ACCU-CHEK XX SCH (02:00)
[2018-09-08 04:00] VITALS: BP 103/53; PULSE 64; RESP 20
[2018-09-08 07:14] VITALS: BP 121/58; PULSE 57; RESP 18
[2018-09-08] MEDS: LINAGLIPTIN 5 MG TABLET PO SCH (07:41)
[2018-09-08] MEDS: INSULIN ASPART [NOVOLOG] 3 ML PEN SC SCH ×7 (07:43→21:00)
--- NOTE | 2018-09-08 07:45 | CONS ---
Consult Date/Type/Reason Admit Date/Time Sep 05, 2018 at 11:01 Initial Consult Date 09/05/18 Type of Consultation: CV Requesting Provider: SAMSON FREEMAN Date/Time of Note DATE: 09/08/18 TIME: 07:44 Subjective Cardiology follow-up progress note Subjective: Discussed with the staff and telemetry was reviewed. Patient with no chest pain or pressure. Patient WITH NO palpitation today. Telemetry was reviewed no evidence of atrial fibrillation or significant arrhythmia now. Patient has less lightheadedness when he stands up. Blood pressure has been better now Objective: General: no acute distress HEENT: NC/AT. pupils are equal. round. NECK: NO JVD. no stridor. CV: RRR. systolic murmur; no gallop or rubs. PULM: no wheezing or rhonchi. GI: SOFT, NT, ND, no rebound or guarding Extremity: trace B/L LE edema. no clubbing. neuro: awake and alert, OX3. Psych: Appears anxious but pleasant rectal: deferred : normal Objective Vitals Vital Signs Date Temp Pulse Resp B/P (MAP) Pulse Ox O2 O2 Flow FiO2 Time Delivery Rate 09/08/18 97.9 57 18 121/58 96 Room Air 07:14 (79) 09/06/18 2.0 19:48 Intake and Output 09/07/18 09/07/18 09/08/18 1515:00 23:00 07:00 IntakeIntake Total 360 ml 600 ml BalanceBalance 360 ml 600 ml Results/Medications Result Diagram: 09/06/18 0500 09/06/18 0500 Results 24 hrs Laboratory Tests Test 09/07/18 11:43 09/07/18 17:14 09/07/18 20:20 Bedside Glucose 164 188 135 Home Meds Reported Medications Dutasteride* (Avodart*) 0.5 Mg Capsule, 0.5 MG PO DAILY, CAP 04/22/17 Sitagliptin* (Januvia*) 100 Mg Tablet, 100 MG PO DAILY, #30 TAB 04/22/17 Ranolazine* (Ranexa*) 1,000 Mg Tab.sr.12h, 1000 MG PO Q12, TAB 04/22/17 Icosapent Ethyl (VASCEPA) 1 Gm Capsule, 1 GM PO TID, CAP 04/22/17 Canagliflozin/Metformin HCl (Invokamet 150-500 mg Tablet) 1 Each Tablet, 1 EACH PO BID, #60 TAB 04/22/17 Valsartan* (Diovan*) 80 Mg Tablet, 80 MG PO DAILY, TAB 04/22/17 Metoprolol Succinate* (Toprol XL*) 25 Mg Tab.sr.24h, 25 MG PO DAILY, #30 TAB 04/22/17 Isosorbide Mononitrate* (Isosorbide Mononitrate*) 30 Mg Tab.er.24h, 30 MG PO DAILY, TAB 04/22/17 Famotidine* (Famotidine*) 20 Mg Tablet, 20 MG PO DAILY, #30 TAB 04/22/17 Clopidogrel Bisulfate (Clopidogrel) 75 Mg Tablet, 75 MG PO DAILY, #30 TAB 04/22/17 Atorvastatin* (Atorvastatin*) 40 Mg Tablet, 40 MG PO QHS, #30 TAB 04/22/17 Medications Current Medications Atorvastatin Calcium (Lipitor) 40 mg QHS PO Last administered on 09/07/18 20:28; Admin Dose 40 MG; Start 09/05/18 at 21:00 Clopidogrel Bisulfate (plaVIX) 75 mg DAILY PO Last administered on 09/07/18 08:35; Admin Dose 75 MG; Start 09/05/18 at 10:00 Dutasteride (Avodart) 0.5 mg DAILY PO Last administered on 09/07/18 08:34; Admin Dose 0.5 MG; Start 09/06/18 at 10:00 Famotidine (Pepcid) 20 mg DAILY PO Last administered on 09/07/18 08:35; Admin Dose 20 MG; Start 09/05/18 at 10:00 Metoprolol Succinate (Toprol Xl) 25 mg DAILY PO Last administered on 09/07/18 08:35; Admin Dose 25 MG; Start 09/05/18 at 10:00 Ranolazine (Ranexa) 1,000 mg Q12 PO Last administered on 09/07/18 20:28; Admin Dose 1,000 MG; Start 09/05/18 at 10:00 Linagliptin (Tradjenta) 5 mg DAILY PO Last administered on 09/08/18 07:41; Admin Dose 5 MG; Start 09/05/18 at 10:00 Diagnostic Test (Pha) (Accu-Chek) 1 ea 02 XX ; Start 09/06/18 at 02:00 Insulin Aspart (Novolog Insulin Pen) 5 unit WITH MEALS SC Last administered on 09/08/18at 07:43; Admin Dose 5 UNIT; Start 09/05/18 at 12:00 Enoxaparin Sodium (Lovenox) 30 mg DAILY SC Last administered on 09/07/18at 08:39; Admin Dose 30 MG; Start 09/06/18 at 09:00 Losartan Potassium (Cozaar) 12.5 mg DAILY PO Last administered on 09/07/18at 08:34; Admin Dose 12.5 MG; Start 09/07/18 at 09:00 Insulin Aspart (Novolog Insulin Pen) NOVOLOG *MILD* ALGORITHM WITH MEALS BEDTIME SC Last administered on 09/08/18at 07:43; Admin Dose 1 UNIT; Start 09/07/18 at 18:00 Miscellaneous Information 1 ea NOTE XX ; Start 09/07/18 at 14:00 Glucose (Glutose) 15 gm Q15M PRN PO DECREASED GLUCOSE; Start 09/07/18 at 14:00 Glucose (Glutose) 22.5 gm Q15M PRN PO DECREASED GLUCOSE; Start 09/07/18 at 14:00 Dextrose (D50w Syringe) 25 ml Q15M PRN IV DECREASED GLUCOSE; Start 09/07/18 at 14:00 Dextrose (D50w Syringe) 50 ml Q15M PRN IV DECREASED GLUCOSE; Start 09/07/18 at 14:00 Glucagon (Glucagen) 1 mg Q15M PRN IM DECREASED GLUCOSE; Start 09/07/18 at 14:00 Glucose (Glutose) 15 gm Q15M PRN BUCCAL DECREASED GLUCOSE; Start 09/07/18 at 14:00 Assessment/Plan Hospital Course (Demo Recall) 1. Atrial fibrillation with ventricular response: Appears to be short episode h as converted back to sinus rhythm. 2. Chest pain most likely related to above 3. Coronary artery disease 4. History of PCI 5. Hypertension 6. Diabetes 7. Dyslipidemia . Orthostatic symptoms including dizziness Recommendation: Continue with the beta-kiana. Continue with antiplatelet with Plavix for now Statin will be continued [place] has been ruled out cont losartan to 12.5 mg qd only given his low blood pressure Echo has already been done as an outpatient in the office that showed normal LV systolic function Diabetic management as per internal medicine Electrolyte to be corrected as needed BP improved after IV fluid DC planning when okay from internal medicine standpoint We will follow-up with patient in the office as well as scheduled already Thank you for his referral. We will continue to follow along with you SURESH WESTBROOK MD [facility] SURESH WESTBROOK MD Sep 08, 2018 07:45
[2018-09-08] MEDS: LOSARTAN 50 MG TAB PO SCH (08:24)
[2018-09-08] MEDS: METOPROLOL (XL) 25 MG TAB PO SCH (08:25)
[2018-09-08] MEDS: FAMOTIDINE 20 MG TAB PO SCH (08:26)
[2018-09-08] MEDS: RANOLAZINE (SR) 500 MG TAB PO SCH ×2 (08:26→21:43)
[2018-09-08] MEDS: CLOPIDOGREL 75 MG TAB PO SCH (08:26)
[2018-09-08] MEDS: DUTASTERIDE 0.5 MG CAP PO SCH (08:26)
[2018-09-08] MEDS: ENOXAPARIN 30 MG/0.3 ML SYG SC SCH (08:30)
[2018-09-08 11:28] VITALS: BP 114/57; PULSE 58; RESP 18
--- NOTE | 2018-09-08 13:55 | PN ---
Date/Time of Note Date/Time of Note DATE: 09/08/18 TIME: 13:47 Assessment/Plan VTE Prophylaxis Risk score (from Ns)>0 risk: 2 SCD applied (from Ns): Yes Pharmacological prophylaxis: LMWH Lines/Catheters [facility] Saline Lock Assessment/Plan Hospital Course Patient is complains of left lateral chest pain CT of the chest revealed a left lower lobe bronchiolitis and bronchiectasis. Pulmonology consultation is requested, continue oxygen supplementation and bronchodilators and pain obed gement. Assessment/Plan - Left bronchiolitis and left lower lobe bronchiectasis. Dr. Valladares is asked to see patient in pulmonology consultation. - Atrial fibrillation with ventricular response, short episode, converted back to sinus rhythm. Dr. Laureano is following in cardiology consultation. - Chest pain most likely related to above, [place] ruled out - Coronary artery disease, history of PCI. Continue Plavix. - Diabetes mellitus type 2, continue Tradjenta NovoLog, blood sugar is well controlled. - Hypertension, continue Cozaar - Dyslipidemia, continue statin. - Healed fracture of the lateral left fifth rib per CT. Further recommendations based on clinical course. Plan of care discussed with Dr. Thurman. Result Diagram: 09/06/18 0500 09/06/18 0500 Results 24hrs Laboratory Tests Test 09/07/18 17:14 09/07/18 20:20 09/08/18 07:37 09/08/18 12:02 Bedside Glucose 188 135 149 135 Exam/Review of Systems Exam Vitals Vital Signs Date Temp Pulse Resp B/P (MAP) Pulse Ox O2 O2 Flow FiO2 Time Delivery Rate 09/08/18 98.2 58 18 114/57 96 Room Air 11:28 (76) 09/06/18 2.0 19:48 Intake and Output 09/07/18 09/07/18 09/08/18 1515:00 23:00 07:00 IntakeIntake Total 360 ml 600 ml BalanceBalance 360 ml 600 ml Exam Constitutional: alert, oriented Head: normocephalic Neck: supple Respiratory: clear to auscultation Cardiovascular: regular rate and rhythm Gastrointestinal: soft, non-tender Musculoskeletal: other (Left lower chest pain) Extremities: normal pulses Neurological: nl mental status Results Results 24hrs Laboratory Tests Test 09/07/18 17:14 09/07/18 20:20 09/08/18 07:37 09/08/18 12:02 Bedside Glucose 188 135 149 135 Medications Medication Current Medications Atorvastatin Calcium (Lipitor) 40 mg QHS PO Last administered on 09/07/18 20:28; Admin Dose 40 MG; Start 09/05/18 at 21:00 Clopidogrel Bisulfate (plaVIX) 75 mg DAILY PO Last administered on 09/08/18 08:26; Admin Dose 75 MG; Start 09/05/18 at 10:00 Dutasteride (Avodart) 0.5 mg DAILY PO Last administered on 09/08/18 08:26; Admin Dose 0.5 MG; Start 09/06/18 at 10:00 Famotidine (Pepcid) 20 mg DAILY PO Last administered on 09/08/18 08:26; Admin Dose 20 MG; Start 09/05/18 at 10:00 Metoprolol Succinate (Toprol Xl) 25 mg DAILY PO Last administered on 09/08/18 08:25; Admin Dose 25 MG; Start 09/05/18 at 10:00 Ranolazine (Ranexa) 1,000 mg Q12 PO Last administered on 09/08/18 08:26; Admin Dose 1,000 MG; Start 09/05/18 at 10:00 Linagliptin (Tradjenta) 5 mg DAILY PO Last administered on 09/08/18 07:41; Admin Dose 5 MG; Start 09/05/18 at 10:00 Diagnostic Test (Pha) (Accu-Chek) 1 ea 02 XX ; Start 09/06/18 at 02:00 Insulin Aspart (Novolog Insulin Pen) 5 unit WITH MEALS SC Last administered on 09/08/18 12:05; Admin Dose 5 UNIT; Start 09/05/18 at 12:00 Enoxaparin Sodium (Lovenox) 30 mg DAILY SC Last administered on 09/08/18 08:30; Admin Dose 30 MG; Start 09/06/18 at 09:00 Losartan Potassium (Cozaar) 12.5 mg DAILY PO Last administered on 09/08/18 08:24; Admin Dose 12.5 MG; Start 09/07/18 at 09:00 Insulin Aspart (Novolog Insulin Pen) NOVOLOG *MILD* ALGORITHM WITH MEALS BEDTIME SC Last administered on 7/2/19at 07:43; Admin Dose 1 UNIT; Start 09/07/18 at 18:00 Miscellaneous Information 1 ea NOTE XX ; Start 09/07/18 at 14:00 Glucose (Glutose) 15 gm Q15M PRN PO DECREASED GLUCOSE; Start 09/07/18 at 14:00 Glucose (Glutose) 22.5 gm Q15M PRN PO DECREASED GLUCOSE; Start 09/07/18 at 14:00 Dextrose (D50w Syringe) 25 ml Q15M PRN IV DECREASED GLUCOSE; Start 09/07/18 at 14:00 Dextrose (D50w Syringe) 50 ml Q15M PRN IV DECREASED GLUCOSE; Start 09/07/18 at 14:00 Glucagon (Glucagen) 1 mg Q15M PRN IM DECREASED GLUCOSE; Start 09/07/18 at 14:00 Glucose (Glutose) 15 gm Q15M PRN BUCCAL DECREASED GLUCOSE; Start 09/07/18 at 14:00 GABINO ALBERT Sep 08, 2018 13:55
[2018-09-08] MEDS: ALBUTEROL/IPRATROPIUM (NEB) 3 ML AMP HHN SCH ×2 (14:00→19:44)
[2018-09-08 15:20] VITALS: BP 119/59; PULSE 65; RESP 18
[2018-09-08] MEDS: ATORVASTATIN 40 MG TAB PO SCH (21:43)
[2018-09-08 23:39] VITALS: BP 114/55; PULSE 65; RESP 18
[2018-09-09] MEDS: ALBUTEROL/IPRATROPIUM (NEB) 3 ML AMP HHN SCH ×4 (01:52→19:34)
[2018-09-09] MEDS: ACCU-CHEK XX SCH (02:00)
[2018-09-09 04:00] VITALS: BP 125/80; PULSE 64; RESP 18
[2018-09-09] MEDS: INSULIN ASPART [NOVOLOG] 3 ML PEN SC SCH ×7 (07:50→20:58)
[2018-09-09 08:04] VITALS: BP 125/69; PULSE 78; RESP 19
[2018-09-09] MEDS: FAMOTIDINE 20 MG TAB PO SCH (08:04)
[2018-09-09] MEDS: CLOPIDOGREL 75 MG TAB PO SCH (08:04)
[2018-09-09] MEDS: METOPROLOL (XL) 25 MG TAB PO SCH (08:05)
[2018-09-09] MEDS: RANOLAZINE (SR) 500 MG TAB PO SCH ×2 (08:05→20:59)
[2018-09-09] MEDS: DUTASTERIDE 0.5 MG CAP PO SCH (08:05)
[2018-09-09] MEDS: LINAGLIPTIN 5 MG TABLET PO SCH (08:05)
[2018-09-09] MEDS: LOSARTAN 50 MG TAB PO SCH (08:06)
[2018-09-09] MEDS: ENOXAPARIN 30 MG/0.3 ML SYG SC SCH (08:17)
--- NOTE | 2018-09-09 08:18 | CONS ---
Consult Date/Type/Reason Admit Date/Time Sep 07, 2018 at 16:34 Initial Consult Date 09/05/18 Type of Consultation: CV Requesting Provider: SAMSON FREEMAN Date/Time of Note DATE: 09/09/18 TIME: 08:17 Subjective Cardiology follow-up progress note Subjective: Discussed with the staff and telemetry was reviewed. Patient with no chest pain or pressure now. Patient WITH NO palpitation today. Telemetry was reviewed no evidence of atrial fibrillation or significant arrhythmia now. Blood pressure has been stable now Objective: General: no acute distress HEENT: NC/AT. pupils are equal. round. NECK: NO JVD. no stridor. CV: RRR. systolic murmur; no gallop or rubs. PULM: no wheezing or rhonchi. GI: SOFT, NT, ND, no rebound or guarding Extremity: trace B/L LE edema. no clubbing. neuro: awake and alert, OX3. Psych: Appears anxious but pleasant rectal: deferred : normal Objective Vitals Vital Signs Date Temp Pulse Resp B/P (MAP) Pulse Ox O2 O2 Flow FiO2 Time Delivery Rate 09/09/18 98.3 78 19 125/69 98 08:04 (87) 09/09/18 Room Air 04:00 09/09/18 21 01:53 09/06/18 2.0 19:48 Intake and Output 09/08/18 09/08/18 09/09/18 1515:00 23:00 07:00 IntakeIntake Total 360 ml 360 ml BalanceBalance 360 ml 360 ml Results/Medications Result Diagram: 09/06/18 0500 09/06/18 0500 Results 24 hrs Laboratory Tests Test 09/08/18 12:02 09/08/18 17:07 09/08/18 21:46 09/09/18 07:44 Bedside Glucose 135 176 173 169 Home Meds Reported Medications Dutasteride* (Avodart*) 0.5 Mg Capsule, 0.5 MG PO DAILY, CAP 04/22/17 Sitagliptin* (Januvia*) 100 Mg Tablet, 100 MG PO DAILY, #30 TAB 04/22/17 Ranolazine* (Ranexa*) 1,000 Mg Tab.sr.12h, 1000 MG PO Q12, TAB 04/22/17 Icosapent Ethyl (VASCEPA) 1 Gm Capsule, 1 GM PO TID, CAP 04/22/17 Canagliflozin/Metformin HCl (Invokamet 150-500 mg Tablet) 1 Each Tablet, 1 EACH PO BID, #60 TAB 04/22/17 Valsartan* (Diovan*) 80 Mg Tablet, 80 MG PO DAILY, TAB 04/22/17 Metoprolol Succinate* (Toprol XL*) 25 Mg Tab.sr.24h, 25 MG PO DAILY, #30 TAB 04/22/17 Isosorbide Mononitrate* (Isosorbide Mononitrate*) 30 Mg Tab.er.24h, 30 MG PO DAILY, TAB 04/22/17 Famotidine* (Famotidine*) 20 Mg Tablet, 20 MG PO DAILY, #30 TAB 04/22/17 Clopidogrel Bisulfate (Clopidogrel) 75 Mg Tablet, 75 MG PO DAILY, #30 TAB 04/22/17 Atorvastatin* (Atorvastatin*) 40 Mg Tablet, 40 MG PO QHS, #30 TAB 04/22/17 Medications Current Medications Atorvastatin Calcium (Lipitor) 40 mg QHS PO Last administered on 09/08/18 21:43; Admin Dose 40 MG; Start 09/05/18 at 21:00 Clopidogrel Bisulfate (plaVIX) 75 mg DAILY PO Last administered on 09/08/18 08:26; Admin Dose 75 MG; Start 09/05/18 at 10:00 Dutasteride (Avodart) 0.5 mg DAILY PO Last administered on 09/08/18 08:26; Admin Dose 0.5 MG; Start 09/06/18 at 10:00 Famotidine (Pepcid) 20 mg DAILY PO Last administered on 09/08/18 08:26; Admin Dose 20 MG; Start 09/05/18 at 10:00 Metoprolol Succinate (Toprol Xl) 25 mg DAILY PO Last administered on 09/08/18 08:25; Admin Dose 25 MG; Start 09/05/18 at 10:00 Ranolazine (Ranexa) 1,000 mg Q12 PO Last administered on 09/08/18 21:43; Admin Dose 1,000 MG; Start 09/05/18 at 10:00 Linagliptin (Tradjenta) 5 mg DAILY PO Last administered on 09/08/18 07:41; Admin Dose 5 MG; Start 09/05/18 at 10:00 Diagnostic Test (Pha) (Accu-Chek) 1 ea 02 XX ; Start 09/06/18 at 02:00 Insulin Aspart (Novolog Insulin Pen) 5 unit WITH MEALS SC Last administered on 09/09/18at 07:50; Admin Dose 5 UNIT; Start 09/05/18 at 12:00 Enoxaparin Sodium (Lovenox) 30 mg DAILY SC Last administered on 09/08/18at 08:30; Admin Dose 30 MG; Start 09/06/18 at 09:00 Losartan Potassium (Cozaar) 12.5 mg DAILY PO Last administered on 09/08/18at 08:24; Admin Dose 12.5 MG; Start 09/07/18 at 09:00 Insulin Aspart (Novolog Insulin Pen) NOVOLOG *MILD* ALGORITHM WITH MEALS BEDTIME SC Last administered on 09/09/18at 07:50; Admin Dose 1 UNIT; Start 09/07/18 at 18:00 Miscellaneous Information 1 ea NOTE XX ; Start 09/07/18 at 14:00 Glucose (Glutose) 15 gm Q15M PRN PO DECREASED GLUCOSE; Start 09/07/18 at 14:00 Glucose (Glutose) 22.5 gm Q15M PRN PO DECREASED GLUCOSE; Start 09/07/18 at 14:00 Dextrose (D50w Syringe) 25 ml Q15M PRN IV DECREASED GLUCOSE; Start 09/07/18 at 14:00 Dextrose (D50w Syringe) 50 ml Q15M PRN IV DECREASED GLUCOSE; Start 09/07/18 at 14:00 Glucagon (Glucagen) 1 mg Q15M PRN IM DECREASED GLUCOSE; Start 09/07/18 at 14:00 Glucose (Glutose) 15 gm Q15M PRN BUCCAL DECREASED GLUCOSE; Start 09/07/18 at 14:00 Albuterol/ Ipratropium (Duoneb) 3 ml Q6H RESP THERAPY HHN Last administered on 09/09/18at 01:52; Admin Dose 3 ML; Start 09/08/18 at 14:00 Assessment/Plan Hospital Course (Demo Recall) 1. P-Atrial fibrillation with ventricular response: Appears to be short episode has converted back to sinus rhythm. Patient has remained in sinus rhythm now 2. Chest pain most likely related to above in addition to his history of rib fracture after a previous fall 3. Coronary artery disease 4. History of PCI 5. Hypertension 6. Diabetes 7. Dyslipidemia . Orthostatic symptoms including dizziness Recommendation: Continue with the beta-kiana. Continue with antiplatelet with Plavix for now Statin will be continued [place] has been ruled out cont losartan to 12.5 mg qd only given his low blood pressure Echo has already been done as an outpatient in the office that showed normal LV systolic function Diabetic management as per internal medicine Electrolyte to be corrected as needed BP improved after IV fluid DC planning when okay from internal medicine standpoint We will follow-up with patient in the office as well as scheduled already Thank you for his referral. We will continue to follow along with you SURESH WESTBROOK MD [facility] SURESH WESTBROOK MD Sep 09, 2018 08:18
[2018-09-09 11:59] VITALS: BP 123/69; PULSE 88; RESP 19
[2018-09-09 16:23] VITALS: BP 128/76; PULSE 79; RESP 18
--- NOTE | 2018-09-09 16:28 | PN ---
Date/Time of Note Date/Time of Note DATE: 09/09/18 TIME: 16:28 Assessment/Plan VTE Prophylaxis Risk score (from Ns)>0 risk: 3 SCD applied (from Nsg): Yes Pharmacological prophylaxis: LMWH Lines/Catheters IV C[facility]ter Type (from [facility]): Saline Lock Assessment/Plan Hospital Course Patient is complains of left lateral chest pain and occasional shortness of breath. CT of the chest revealed a left lower lobe bronchiolitis and bronchiectasis. Pulmonology consultation is requested, continue oxygen supplementation and bronchodilators,pain management. Assessment/Plan - Left bronchiolitis and left lower lobe bronchiectasis. Dr. Valladares is asked to see patient in pulmonology consultation. - Atrial fibrillation with ventricular response, short episode, converted back to sinus rhythm. Dr. Laureano is following in cardiology consultation. - Chest pain most likely related to above, [place] ruled out - Coronary artery disease, history of PCI. Continue Plavix. - Diabetes mellitus type 2, continue Tradjenta NovoLog, blood sugar is well controlled. - Hypertension, continue Cozaar - Dyslipidemia, continue statin. - Healed fracture of the lateral left fifth rib per CT. Further recommendations based on clinical course. Plan of care discussed with Dr. Thurman. Result Diagram: 09/06/18 0500 09/06/18 0500 Results 24hrs Laboratory Tests Test 09/08/18 17:07 09/08/18 21:46 09/09/18 07:44 09/09/18 11:38 Bedside Glucose 176 173 169 233 H Exam/Review of Systems Exam Vitals Vital Signs Date Temp Pulse Resp B/P (MAP) Pulse Ox O2 O2 Flow FiO2 Time Delivery Rate 09/09/18 98.6 79 18 128/76 98 16:23 (93) 09/09/18 21 14:44 09/09/18 Room Air 04:00 09/06/18 2.0 19:48 Intake and Output 09/08/18 09/08/18 09/09/18 1515:00 23:00 07:00 IntakeIntake Total 360 ml 360 ml BalanceBalance 360 ml 360 ml Exam Constitutional: alert, oriented Head: normocephalic Neck: supple Respiratory: clear to auscultation Cardiovascular: regular rate and rhythm Gastrointestinal: soft, non-tender Musculoskeletal: other (Left lower chest pain) Extremities: normal pulses Neurological: nl mental status Results Results 24hrs Laboratory Tests Test 09/08/18 17:07 09/08/18 21:46 09/09/18 07:44 09/09/18 11:38 Bedside Glucose 176 173 169 233 H Medications Medication Current Medications Atorvastatin Calcium (Lipitor) 40 mg QHS PO Last administered on 09/08/18 21:43; Admin Dose 40 MG; Start 09/05/18 at 21:00 Clopidogrel Bisulfate (plaVIX) 75 mg DAILY PO Last administered on 09/09/18 08:04; Admin Dose 75 MG; Start 09/05/18 at 10:00 Dutasteride (Avodart) 0.5 mg DAILY PO Last administered on 09/09/18 08:05; Adm in Dose 0.5 MG; Start 09/06/18 at 10:00 Famotidine (Pepcid) 20 mg DAILY PO Last administered on 09/09/18 08:04; Admin Dose 20 MG; Start 09/05/18 at 10:00 Metoprolol Succinate (Toprol Xl) 25 mg DAILY PO Last administered on 09/09/18 08:05; Admin Dose 25 MG; Start 09/05/18 at 10:00 Ranolazine (Ranexa) 1,000 mg Q12 PO Last administered on 09/09/18 08:05; Admin Dose 1,000 MG; Start 09/05/18 at 10:00 Linagliptin (Tradjenta) 5 mg DAILY PO Last administered on 09/09/18 08:05; Admin Dose 5 MG; Start 09/05/18 at 10:00 Diagnostic Test (Pha) (Accu-Chek) 1 ea 02 XX ; Start 09/06/18 at 02:00 Insulin Aspart (Novolog Insulin Pen) 5 unit WITH MEALS SC Last administered on 09/09/18 11:52; Admin Dose 5 UNIT; Start 09/05/18 at 12:00 Enoxaparin Sodium (Lovenox) 30 mg DAILY SC Last administered on 09/09/18 08:17; Admin Dose 30 MG; Start 09/06/18 at 09:00 Losartan Potassium (Cozaar) 12.5 mg DAILY PO Last administered on 09/09/18 08:06; Admin Dose 12.5 MG; Start 09/07/18 at 09:00 Insulin Aspart (Novolog Insulin Pen) NOVOLOG *MILD* ALGORITHM WITH MEALS BEDTIME SC Last administered on 09/09/18at 11:52; Admin Dose 3 UNIT; Start 09/07/18 at 18:00 Miscellaneous Information 1 ea NOTE XX ; Start 09/07/18 at 14:00 Glucose (Glutose) 15 gm Q15M PRN PO DECREASED GLUCOSE; Start 09/07/18 at 14:00 Glucose (Glutose) 22.5 gm Q15M PRN PO DECREASED GLUCOSE; Start 09/07/18 at 14:00 Dextrose (D50w Syringe) 25 ml Q15M PRN IV DECREASED GLUCOSE; Start 09/07/18 at 14:00 Dextrose (D50w Syringe) 50 ml Q15M PRN IV DECREASED GLUCOSE; Start 09/07/18 at 14:00 Glucagon (Glucagen) 1 mg Q15M PRN IM DECREASED GLUCOSE; Start 09/07/18 at 14:00 Glucose (Glutose) 15 gm Q15M PRN BUCCAL DECREASED GLUCOSE; Start 09/07/18 at 14:00 Albuterol/ Ipratropium (Duoneb) 3 ml Q6H RESP THERAPY HHN Last administered on 09/09/18at 14:44; Admin Dose 3 ML; Start 09/08/18 at 14:00 GABINO ALBERT Sep 09, 2018 16:28
[2018-09-09 20:00] VITALS: PULSE 67
[2018-09-09 20:34] VITALS: BP 135/63; PULSE 54; RESP 18
[2018-09-09] MEDS: ATORVASTATIN 40 MG TAB PO SCH (20:59)
[2018-09-10] VITALS: BP 122/62; PULSE 67; RESP 18
[2018-09-10] MEDS: ACCU-CHEK XX SCH (02:00)
[2018-09-10] MEDS: ALBUTEROL/IPRATROPIUM (NEB) 3 ML AMP HHN SCH ×4 (02:18→20:17)
[2018-09-10 04:12] VITALS: BP 130/66; PULSE 57; RESP 18
[2018-09-10 07:23] VITALS: BP 104/58; PULSE 68; RESP 18
[2018-09-10] MEDS: INSULIN ASPART [NOVOLOG] 3 ML PEN SC SCH ×7 (07:51→20:50)
[2018-09-10] MEDS: RANOLAZINE (SR) 500 MG TAB PO SCH ×2 (08:20→20:50)
[2018-09-10] MEDS: FAMOTIDINE 20 MG TAB PO SCH (08:21)
[2018-09-10] MEDS: DUTASTERIDE 0.5 MG CAP PO SCH (08:21)
[2018-09-10] MEDS: CLOPIDOGREL 75 MG TAB PO SCH (08:21)
[2018-09-10] MEDS: LINAGLIPTIN 5 MG TABLET PO SCH (08:21)
[2018-09-10] MEDS: METOPROLOL (XL) 25 MG TAB PO SCH (08:22)
[2018-09-10] MEDS: LOSARTAN 50 MG TAB PO SCH (08:22)
[2018-09-10] MEDS: ENOXAPARIN 30 MG/0.3 ML SYG SC SCH (08:26)
--- NOTE | 2018-09-10 11:02 | PN ---
Date/Time of Note Date/Time of Note DATE: 09/10/18 TIME: 11:01 Assessment/Plan VTE Prophylaxis Risk score (from Ns)>0 risk: 4 SCD applied (from Nsg): Yes Pharmacological prophylaxis: LMWH Lines/Catheters IV Catheter Type (from [facility]): Saline Lock Assessment/Plan Hospital Course Patient is complains of occasional shortness of breath, complains of left lateral chest pain, CT of the chest revealed a left lower lobe bronchiolitis and bronchiectasis. Pending evaluation by investment analyst, continue bronchodilators. CT scan results and plan of care discussed with patient at the bedside, all questions answered. Plan of care discussed with BLAINE Galdamez. Assessment/Plan - Left bronchiolitis and left lower lobe bronchiectasis. Dr. Valladares is asked to see patient in pulmonology consultation. - Atrial fibrillation with ventricular response, short episode, converted back to sinus rhythm. Dr. Laureano is following in cardiology consultation. - Chest pain most likely related to above, MT ruled out - Coronary artery disease, history of PCI. Continue Plavix. - Diabetes mellitus type 2, continue Tradjenta NovoLog, blood sugar is well controlled. - Hypertension, continue Cozaar - Dyslipidemia, continue statin. - Healed fracture of the lateral left fifth rib per CT. Further recommendations based on clinical course. Plan of care discussed with Dr. Thurman. Result Diagram: 09/06/18 0500 09/06/18 0500 Results 24hrs Laboratory Tests Test 09/09/18 11:38 09/09/18 17:14 09/09/18 20:58 09/10/18 07:37 Bedside Glucose 233 H 174 159 152 Exam/Review of Systems Exam Vitals Vital Signs Date Temp Pulse Resp B/P (MAP) Pulse Ox O2 O2 Flow FiO2 Time Delivery Rate 09/10/18 97.4 68 18 104/58 98 07:23 (73) 09/10/18 21 02:20 09/09/18 Room Air 04:00 09/06/18 2.0 19:48 Intake and Output 09/09/18 09/09/18 09/10/18 1515:00 23:00 07:00 IntakeIntake Total 440 ml 350 ml OutputOutput Total 300 ml 250 ml BalanceBalance 140 ml 100 ml Exam Constitutional: alert, oriented Head: normocephalic Neck: supple Respiratory: clear to auscultation Cardiovascular: regular rate and rhythm Gastrointestinal: soft, non-tender Musculoskeletal: other (Left lower chest pain) Extremities: normal pulses Neurological: nl mental status Results Results 24hrs Laboratory Tests Test 09/09/18 11:38 09/09/18 17:14 09/09/18 20:58 09/10/18 07:37 Bedside Glucose 233 H 174 159 152 Medications Medication Current Medications Atorvastatin Calcium (Lipitor) 40 mg QHS PO Last administered on 09/09/18 20:59; Admin Dose 40 MG; Start 09/05/18 at 21:00 Clopidogrel Bisulfate (plaVIX) 75 mg DAILY PO Last administered on 09/10/18 08:21; Admin Dose 75 MG; Start 09/05/18 at 10:00 Dutasteride (Avodart) 0.5 mg DAILY PO Last administered on 09/10/18 08:21; Admin Dose 0.5 MG; Start 09/06/18 at 10:00 Famotidine (Pepcid) 20 mg DAILY PO Last administered on 09/10/18 08:21; Admin Dose 20 MG; Start 09/05/18 at 10:00 Metoprolol Succinate (Toprol Xl) 25 mg DAILY PO Last administered on 09/10/18 08:22; Admin Dose 25 MG; Start 09/05/18 at 10:00 Ranolazine (Ranexa) 1,000 mg Q12 PO Last administered on 09/10/18 08:20; Admin Dose 1,000 MG; Start 09/05/18 at 10:00 Linagliptin (Tradjenta) 5 mg DAILY PO Last administered on 09/10/18 08:21; Admin Dose 5 MG; Start 09/05/18 at 10:00 Diagnostic Test (Pha) (Accu-Chek) 1 ea 02 XX ; Start 09/06/18 at 02:00 Insulin Aspart (Novolog Insulin Pen) 5 unit WITH MEALS SC Last administered on 09/10/18 07:51; Admin Dose 5 UNIT; Start 09/05/18 at 12:00 Enoxaparin Sodium (Lovenox) 30 mg DAILY SC Last administered on 09/10/18 08:26; Admin Dose 30 MG; Start 09/06/18 at 09:00 Losartan Potassium (Cozaar) 12.5 mg DAILY PO Last administered on 09/10/18at 08:22; Admin Dose 12.5 MG; Start 09/07/18 at 09:00 Insulin Aspart (Novolog Insulin Pen) NOVOLOG *MILD* ALGORITHM WITH MEALS BEDTIME SC Last administered on 09/10/18at 07:51; Admin Dose 1 UNIT; Start 09/07/18 at 18:00 Miscellaneous Information 1 ea NOTE XX ; Start 09/07/18 at 14:00 Glucose (Glutose) 15 gm Q15M PRN PO DECREASED GLUCOSE; Start 09/07/18 at 14:00 Glucose (Glutose) 22.5 gm Q15M PRN PO DECREASED GLUCOSE; Start 09/07/18 at 14:00 Dextrose (D50w Syringe) 25 ml Q15M PRN IV DECREASED GLUCOSE; Start 09/07/18 at 14:00 Dextrose (D50w Syringe) 50 ml Q15M PRN IV DECREASED GLUCOSE; Start 09/07/18 at 14:00 Glucagon (Glucagen) 1 mg Q15M PRN IM DECREASED GLUCOSE; Start 09/07/18 at 14:00 Glucose (Glutose) 15 gm Q15M PRN BUCCAL DECREASED GLUCOSE; Start 09/07/18 at 14:00 Albuterol/ Ipratropium (Duoneb) 3 ml Q6H RESP THERAPY HHN Last administered on 09/10/18at 08:54; Admin Dose 3 ML; Start 09/08/18 at 14:00 GABINO ALBERT Sep 10, 2018 11:02
[2018-09-10 11:20] VITALS: BP 109/59; PULSE 84; RESP 18
--- NOTE | 2018-09-10 13:52 | CONS ---
Assessment/Plan Assessment/Plan Assessment/Plan (Daily) IMP: 1. Central bronchiectasis/bronchial wall thickening and tree-in-bud micronodules--findings consistent with an indolent infectious bronchiolitis, such a OSVALDO vs.fungal. Doubt ABPA/ RECS: 1. Obtain sputa for AFB x 3 (for OSVALDO culture) 2. Serum TB Qaunt Gold 3. Cocci serology 4. Total IgE 5. Serum Ig subclasses. Consultation Date/Type/Reason Admit Date/Time Sep 07, 2018 at 16:34 Date of Consultation: Sep 10, 2018 Type of Consult Pulmonary Reason for Consultation Abnl Chest CT Date/Time of Note DATE: 09/10/18 TIME: 13:45 Hx of Present Illness Briefly, this is a 73-year-old man with history of HTN, DM, HLD, CAD s/p PCI, P- Afib, admitted with chest pain likely related to afib with RVR. He underwent a chest CT which showed L > R central bronchiectasis/bronchial wall thickening an tree-in-bud centrilobular micronodules. No known history of TB; no B symptoms. Constitutional: no complaints Eyes: no complaints ENT: no complaints Respiratory: no complaints, cough, pleuritic pain Cardiovascular: no complaints Gastrointestinal: no complaints Genitourinary: no complaints Musculoskeletal: no complaints Skin: no complaints Neurologic: no complaints Lymphatic: no complaints Psychological: no complaints Immunologic: no complaints Past Medical History Medical History: diabetes, high cholesterol, hypertension Home Meds Reported Medications Dutasteride* (Avodart*) 0.5 Mg Capsule, 0.5 MG PO DAILY, CAP 04/22/17 Sitagliptin* (Januvia*) 100 Mg Tablet, 100 MG PO DAILY, #30 TAB 04/22/17 Ranolazine* (Ranexa*) 1,000 Mg Tab.sr.12h, 1000 MG PO Q12, TAB 04/22/17 Icosapent Ethyl (VASCEPA) 1 Gm Capsule, 1 GM PO TID, CAP 04/22/17 Canagliflozin/Metformin HCl (Invokamet 150-500 mg Tablet) 1 Each Tablet, 1 EACH PO BID, #60 TAB 04/22/17 Valsartan* (Diovan*) 80 Mg Tablet, 80 MG PO DAILY, TAB 04/22/17 Metoprolol Succinate* (Toprol XL*) 25 Mg Tab.sr.24h, 25 MG PO DAILY, #30 TAB 04/22/17 Isosorbide Mononitrate* (Isosorbide Mononitrate*) 30 Mg Tab.er.24h, 30 MG PO DAILY, TAB 04/22/17 Famotidine* (Famotidine*) 20 Mg Tablet, 20 MG PO DAILY, #30 TAB 04/22/17 Clopidogrel Bisulfate (Clopidogrel) 75 Mg Tablet, 75 MG PO DAILY, #30 TAB 04/22/17 Atorvastatin* (Atorvastatin*) 40 Mg Tablet, 40 MG PO QHS, #30 TAB 04/22/17 Medications Current Medications Atorvastatin Calcium (Lipitor) 40 mg QHS PO Last administered on 09/09/18at 20:59; Admin Dose 40 MG; Start 09/05/18 at 21:00 Clopidogrel Bisulfate (plaVIX) 75 mg DAILY PO Last administered on 09/10/18 08:21; Admin Dose 75 MG; Start 09/05/18 at 10:00 Dutasteride (Avodart) 0.5 mg DAILY PO Last administered on 09/10/18 08:21; Admin Dose 0.5 MG; Start 09/06/18 at 10:00 Famotidine (Pepcid) 20 mg DAILY PO Last administered on 09/10/18 08:21; Admin Dose 20 MG; Start 09/05/18 at 10:00 Metoprolol Succinate (Toprol Xl) 25 mg DAILY PO Last administered on 09/10/18 08:22; Admin Dose 25 MG; Start 09/05/18 at 10:00 Ranolazine (Ranexa) 1,000 mg Q12 PO Last administered on 09/10/18 08:20; Admin Dose 1,000 MG; Start 09/05/18 at 10:00 Linagliptin (Tradjenta) 5 mg DAILY PO Last administered on 09/10/18 08:21; Admin Dose 5 MG; Start 09/05/18 at 10:00 Diagnostic Test (Pha) (Accu-Chek) 1 ea 02 XX ; Start 09/06/18 at 02:00 Insulin Aspart (Novolog Insulin Pen) 5 unit WITH MEALS SC Last administered on 09/10/18at 11:49; Admin Dose 5 UNIT; Start 09/05/18 at 12:00 Enoxaparin Sodium (Lovenox) 30 mg DAILY SC Last administered on 09/10/18at 08:26; Admin Dose 30 MG; Start 09/06/18 at 09:00 Losartan Potassium (Cozaar) 12.5 mg DAILY PO Last administered on 09/10/18at 08:22; Admin Dose 12.5 MG; Start 09/07/18 at 09:00 Insulin Aspart (Novolog Insulin Pen) NOVOLOG *MILD* ALGORITHM WITH MEALS BEDTIME SC Last administered on 09/10/18at 11:49; Admin Dose 2 UNIT; Start 09/07/18 at 18:00 Miscellaneous Information 1 ea NOTE XX ; Start 09/07/18 at 14:00 Glucose (Glutose) 15 gm Q15M PRN PO DECREASED GLUCOSE; Start 09/07/18 at 14:00 Glucose (Glutose) 22.5 gm Q15M PRN PO DECREASED GLUCOSE; Start 09/07/18 at 14:00 Dextrose (D50w Syringe) 25 ml Q15M PRN IV DECREASED GLUCOSE; Start 09/07/18 at 14:00 Dextrose (D50w Syringe) 50 ml Q15M PRN IV DECREASED GLUCOSE; Start 09/07/18 at 14:00 Glucagon (Glucagen) 1 mg Q15M PRN IM DECREASED GLUCOSE; Start 09/07/18 at 14:00 Glucose (Glutose) 15 gm Q15M PRN BUCCAL DECREASED GLUCOSE; Start 09/07/18 at 1 4:00 Albuterol/ Ipratropium (Duoneb) 3 ml Q6H RESP THERAPY HHN Last administered on 09/10/18at 08:54; Admin Dose 3 ML; Start 09/08/18 at 14:00 Allergies: Coded Allergies: No Known Allergy (Verified , 12/02/11) Social History Alcohol Use: none Smoking Status: Never smoker Drug Use: none Exam/Review of Systems Exam Vitals Vital Signs Date Temp Pulse Resp B/P (MAP) Pulse Ox O2 O2 Flow FiO2 Time Delivery Rate 09/10/18 98.2 84 18 109/59 96 11:20 (76) 09/10/18 21 08:55 09/09/18 Room Air 04:00 09/06/18 2.0 19:48 Intake and Output 09/09/18 09/09/18 09/10/18 1515:00 23:00 07:00 IntakeIntake Total 440 ml 350 ml OutputOutput Total 300 ml 250 ml BalanceBalance 140 ml 100 ml Constitutional: alert, oriented, well developed Psych: no complaints, nl mood/affect Head: normocephalic, atraumatic Eyes: nl conjunctiva, EOMI, nl lids ENMT: nl external ears & nose, nl lips & teeth, nl nasal mucosa & septum Neck: supple, non-tender Respiratory: clear to auscultation Cardiovascular: regular rate and rhythm, nl pulses Gastrointestinal: soft, nl liver, spleen, non-tender Musculoskeletal: nl extremities to inspection Extremities: normal pulses 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, DTR's symmetric Results Result Diagram: 09/06/18 0500 09/06/18 0500 Results 24hrs Laboratory Tests Test 09/09/18 17:14 09/09/18 20:58 09/10/18 07:37 09/10/18 11:42 Bedside Glucose 174 159 152 198 Medications Medication Current Medications Atorvastatin Calcium (Lipitor) 40 mg QHS PO Last administered on 09/09/18 20:59; Admin Dose 40 MG; Start 09/05/18 at 21:00 Clopidogrel Bisulfate (plaVIX) 75 mg DAILY PO Last administered on 09/10/18 08:21; Admin Dose 75 MG; Start 09/05/18 at 10:00 Dutasteride (Avodart) 0.5 mg DAILY PO Last administered on 09/10/18 08:21; Admin Dose 0.5 MG; Start 09/06/18 at 10:00 Famotidine (Pepcid) 20 mg DAILY PO Last administered on 09/10/18 08:21; Admin Dose 20 MG; Start 09/05/18 at 10:00 Metoprolol Succinate (Toprol Xl) 25 mg DAILY PO Last administered on 09/10/18 08:22; Admin Dose 25 MG; Start 09/05/18 at 10:00 Ranolazine (Ranexa) 1,000 mg Q12 PO Last administered on 09/10/18 08:20; Admin Dose 1,000 MG; Start 09/05/18 at 10:00 Linagliptin (Tradjenta) 5 mg DAILY PO Last administered on 09/10/18 08:21; Admin Dose 5 MG; Start 09/05/18 at 10:00 Diagnostic Test (Pha) (Accu-Chek) 1 ea 02 XX ; Start 09/06/18 at 02:00 Insulin Aspart (Novolog Insulin Pen) 5 unit WITH MEALS SC Last administered on 09/10/18 11:49; Admin Dose 5 UNIT; Start 09/05/18 at 12:00 Enoxaparin Sodium (Lovenox) 30 mg DAILY SC Last administered on 09/10/18 08:26; Admin Dose 30 MG; Start 09/06/18 at 09:00 Losartan Potassium (Cozaar) 12.5 mg DAILY PO Last administered on 09/10/18 08:22; Admin Dose 12.5 MG; Start 09/07/18 at 09:00 Insulin Aspart (Novolog Insulin Pen) NOVOLOG *MILD* ALGORITHM WITH MEALS BE DTIME SC Last administered on 09/10/18 11:49; Admin Dose 2 UNIT; Start 09/07/18 at 18:00 Miscellaneous Information 1 ea NOTE XX ; Start 09/07/18 at 14:00 Glucose (Glutose) 15 gm Q15M PRN PO DECREASED GLUCOSE; Start 09/07/18 at 14:00 Glucose (Glutose) 22.5 gm Q15M PRN PO DECREASED GLUCOSE; Start 09/07/18 at 14:00 Dextrose (D50w Syringe) 25 ml Q15M PRN IV DECREASED GLUCOSE; Start 09/07/18 at 14:00 Dextrose (D50w Syringe) 50 ml Q15M PRN IV DECREASED GLUCOSE; Start 09/07/18 at 14:00 Glucagon (Glucagen) 1 mg Q15M PRN IM DECREASED GLUCOSE; Start 09/07/18 at 14:00 Glucose (Glutose) 15 gm Q15M PRN BUCCAL DECREASED GLUCOSE; Start 09/07/18 at 14:00 Albuterol/ Ipratropium (Duoneb) 3 ml Q6H RESP THERAPY HHN Last administered on 09/10/18 08:54; Admin Dose 3 ML; Start 09/08/18 at 14:00 SARA SANCHEZ MD Sep 10, 2018 13:52
[2018-09-10 15:10] VITALS: BP 109/52; PULSE 85; RESP 18
[2018-09-10 19:17] VITALS: BP 135/63; PULSE 69; RESP 18
[2018-09-10] MEDS: ATORVASTATIN 40 MG TAB PO SCH (20:49)
[2018-09-11] VITALS (8 sets, daily range): BP systolic 105–142; BP diastolic 55–69; PULSE 64–81; RESP 16–19
[2018-09-11] MEDS: ALBUTEROL/IPRATROPIUM (NEB) 3 ML AMP HHN SCH ×4 (01:15→19:48)
[2018-09-11] MEDS: ACCU-CHEK XX SCH (02:00)
[2018-09-11] MEDS: INSULIN ASPART [NOVOLOG] 3 ML PEN SC SCH ×8 (08:15→19:10)
[2018-09-11] MEDS: LOSARTAN 50 MG TAB PO SCH (10:07)
[2018-09-11] MEDS: CLOPIDOGREL 75 MG TAB PO SCH (10:08)
[2018-09-11] MEDS: METOPROLOL (XL) 25 MG TAB PO SCH (10:08)
[2018-09-11] MEDS: FAMOTIDINE 20 MG TAB PO SCH (10:08)
[2018-09-11] MEDS: DUTASTERIDE 0.5 MG CAP PO SCH (10:08)
[2018-09-11] MEDS: RANOLAZINE (SR) 500 MG TAB PO SCH ×2 (10:08→20:30)
[2018-09-11] MEDS: LINAGLIPTIN 5 MG TABLET PO SCH (10:09)
[2018-09-11] MEDS: ENOXAPARIN 30 MG/0.3 ML SYG SC SCH (10:11)
--- NOTE | 2018-09-11 10:57 | CONS ---
Consult Date/Type/Reason Admit Date/Time Sep 07, 2018 at 16:34 Initial Consult Date 09/05/18 Type of Consultation: CV Requesting Provider: SAMSON FREEMAN Date/Time of Note DATE: 09/11/18 TIME: 10:55 Subjective Cardiology follow-up progress note Subjective: Discussed with the staff and telemetry was reviewed. Patient with C/O intermittent left sided chest pain at his left rib side Patient WITH one episode of palpitation last nigth but Telemetry was reviewed no evidence of atrial fibrillation or significant arrhythmia . Blood pressure has been stable now Objective: General: no acute distress HEENT: NC/AT. pupils are equal. round. NECK: NO JVD. no stridor. CV: RRR. systolic murmur; no gallop or rubs. PULM: no wheezing or rhonchi. GI: SOFT, NT, ND, no rebound or guarding Extremity: trace B/L LE edema. no clubbing. neuro: awake and alert, OX3. Psych: Appears anxious but pleasant rectal: deferred : normal Objective Vitals Vital Signs Date Temp Pulse Resp B/P (MAP) Pulse Ox O2 O2 Flow FiO2 Time Delivery Rate 09/11/18 68 18 98 21 07:45 09/11/18 97.9 117/61 Room Air 07:13 (79) Intake and Output 09/10/18 09/10/18 09/11/18 1515:00 23:00 07:00 IntakeIntake Total 800 ml 500 ml OutputOutput Total 1 ml BalanceBalance 800 ml 499 ml Results/Medications Results 24 hrs Laboratory Tests Test 09/10/18 11:42 09/10/18 14:16 09/10/18 17:26 09/10/18 20:48 Bedside Glucose 198 147 166 Immunoglobulin G 892 Immunoglobulin A 358 Immunoglobulin M < 25 L Test 09/11/18 07:49 Bedside Glucose 151 Home Meds Reported Medications Dutasteride* (Avodart*) 0.5 Mg Capsule, 0.5 MG PO DAILY, CAP 04/22/17 Sitagliptin* (Januvia*) 100 Mg Tablet, 100 MG PO DAILY, #30 TAB 04/22/17 Ranolazine* (Ranexa*) 1,000 Mg Tab.sr.12h, 1000 MG PO Q12, TAB 04/22/17 Icosapent Ethyl (VASCEPA) 1 Gm Capsule, 1 GM PO TID, CAP 04/22/17 Canagliflozin/Metformin HCl (Invokamet 150-500 mg Tablet) 1 Each Tablet, 1 EACH PO BID, #60 TAB 04/22/17 Valsartan* (Diovan*) 80 Mg Tablet, 80 MG PO DAILY, TAB 04/22/17 Metoprolol Succinate* (Toprol XL*) 25 Mg Tab.sr.24h, 25 MG PO DAILY, #30 TAB 04/22/17 Isosorbide Mononitrate* (Isosorbide Mononitrate*) 30 Mg Tab.er.24h, 30 MG PO DAILY, TAB 04/22/17 Famotidine* (Famotidine*) 20 Mg Tablet, 20 MG PO DAILY, #30 TAB 04/22/17 Clopidogrel Bisulfate (Clopidogrel) 75 Mg Tablet, 75 MG PO DAILY, #30 TAB 04/22/17 Atorvastatin* (Atorvastatin*) 40 Mg Tablet, 40 MG PO QHS, #30 TAB 04/22/17 Medications Current Medications Atorvastatin Calcium (Lipitor) 40 mg QHS PO Last administered on 09/10/18 20:49; Admin Dose 40 MG; Start 09/05/18 at 21:00 Clopidogrel Bisulfate (plaVIX) 75 mg DAILY PO Last administered on 09/11/18 10:08; Admin Dose 75 MG; Start 09/05/18 at 10:00 Dutasteride (Avodart) 0.5 mg DAILY PO Last administered on 09/11/18 10:08; Admin Dose 0.5 MG; Start 09/06/18 at 10:00 Famotidine (Pepcid) 20 mg DAILY PO Last administered on 09/11/18 10:08; Admin Dose 20 MG; Start 09/05/18 at 10:00 Metoprolol Succinate (Toprol Xl) 25 mg DAILY PO Last administered on 09/11/18 10:08; Admin Dose 25 MG; Start 09/05/18 at 10:00 Ranolazine (Ranexa) 1,000 mg Q12 PO Last administered on 09/11/18 10:08; Admin Dose 1,000 MG; Start 09/05/18 at 10:00 Linagliptin (Tradjenta) 5 mg DAILY PO Last administered on 09/11/18 10:09; Admin Dose 5 MG; Start 09/05/18 at 10:00 Diagnostic Test (Pha) (Accu-Chek) 1 ea 02 XX ; Start 09/06/18 at 02:00 Insulin Aspart (Novolog Insulin Pen) 5 unit WITH MEALS SC Last administered on 09/11/18at 08:15; Admin Dose 5 UNIT; Start 09/05/18 at 12:00 Enoxaparin Sodium (Lovenox) 30 mg DAILY SC Last administered on 09/11/18at 10:11; Admin Dose 30 MG; Start 09/06/18 at 09:00 Losartan Potassium (Cozaar) 12.5 mg DAILY PO Last administered on 09/11/18at 10:07; Admin Dose 12.5 MG; Start 09/07/18 at 09:00 Insulin Aspart (Novolog Insulin Pen) NOVOLOG *MILD* ALGORITHM WITH MEALS BEDTIME SC Last administered on 09/11/18at 08:15; Admin Dose 1 UNIT; Start 09/07/18 at 18:00 Miscellaneous Information 1 ea NOTE XX ; Start 09/07/18 at 14:00 Glucose (Glutose) 15 gm Q15M PRN PO DECREASED GLUCOSE; Start 09/07/18 at 14:00 Glucose (Glutose) 22.5 gm Q15M PRN PO DECREASED GLUCOSE; Start 09/07/18 at 14:00 Dextrose (D50w Syringe) 25 ml Q15M PRN IV DECREASED GLUCOSE; Start 09/07/18 at 14:00 Dextrose (D50w Syringe) 50 ml Q15M PRN IV DECREASED GLUCOSE; Start 09/07/18 at 14:00 Glucagon (Glucagen) 1 mg Q15M PRN IM DECREASED GLUCOSE; Start 09/07/18 at 14:00 Glucose (Glutose) 15 gm Q15M PRN BUCCAL DECREASED GLUCOSE; Start 09/07/18 at 14:00 Albuterol/ Ipratropium (Duoneb) 3 ml Q6H RESP THERAPY HHN Last administered on 09/11/18at 07:44; Admin Dose 3 ML; Start 09/08/18 at 14:00 Assessment/Plan Hospital Course (Demo Recall) 1. P-Atrial fibrillation with ventricular response: Appears to be short episode has converted back to sinus rhythm. Patient has remained in sinus rhythm now 2. Chest pain most likely related to above in addition to his history of rib fracture after a previous fall 3. Coronary artery disease 4. History of PCI 5. Hypertension 6. Diabetes 7. Dyslipidemia 8. Orthostatic symptoms including dizziness: improved now Recommendation: Continue with the beta-kiana. Continue with antiplatelet with Plavix for now Statin will be continued OK has been ruled out cont losartan to 12.5 mg qd only given his low blood pressure Echo has already been done as an outpatient in the office that showed normal LV systolic function Diabetic management as per internal medicine Electrolyte to be corrected as needed f/u pulm rec. DC planning when okay from internal medicine standpoint and pulm We will follow-up with patient in the office as well as scheduled already Thank you for his referral. We will continue to follow along with you as needed over the weekend SURESH WESTBROOK MD [facility] SURESH WESTBROOK MD Sep 11, 2018 10:57
[2018-09-11] MEDS ORDERED: BISACODYL (EC) 5 MG TAB PO PRN (12:00)
--- NOTE | 2018-09-11 13:19 | CONS ---
Consult Date/Type/Reason Admit Date/Time Sep 07, 2018 at 16:34 Initial Consult Date 09/10/18 Type of Consult Pulmonary Requesting Provider: SAMSON FREEMAN Date/Time of Note DATE: 09/11/18 TIME: 13:18 Subjective Patient stable this morning no respiratory distress. Objective Vital Signs Date Temp Pulse Resp B/P (MAP) Pulse Ox O2 O2 Flow FiO2 Time Delivery Rate 09/11/18 98.9 74 16 128/63 98 Room Air 11:22 (84) 09/11/18 21 07:45 Intake and Output 09/10/18 09/10/18 09/11/18 1515:00 23:00 07:00 IntakeIntake Total 800 ml 500 ml OutputOutput Total 1 ml BalanceBalance 800 ml 499 ml Exam GENERAL: VITAL SIGNS: per chart NECK: Supple. No JVD or lymphadenopathy. CARDIAC EXAM: S1, S2. No added sounds or murmurs. CHEST: clear bilaterally, No added sounds, rales or wheezes ABDOMEN: Soft, nontender. No guarding or rebound. EXTREMITIES: No cyanosis, clubbing or edema. NEUROLOGIC: Generalized weakness. No focal deficits. Vent Setting Fraction of Inspired Oxygen pe: 21 Results/Medications Results 24 hrs Laboratory Tests Test 09/10/18 14:16 09/10/18 17:26 09/10/18 20:48 09/11/18 07:49 Immunoglobulin G 892 Immunoglobulin A 358 Immunoglobulin M < 25 L Bedside Glucose 147 166 151 Test 09/11/18 12:00 Bedside Glucose 216 Medications Current Medications Atorvastatin Calcium (Lipitor) 40 mg QHS PO Last administered on 09/10/18at 20:49; Admin Dose 40 MG; Start 09/05/18 at 21:00 Clopidogrel Bisulfate (plaVIX) 75 mg DAILY PO Last administered on 09/11/18 10:08; Admin Dose 75 MG; Start 09/05/18 at 10:00 Dutasteride (Avodart) 0.5 mg DAILY PO Last administered on 09/11/18 10:08; Admin Dose 0.5 MG; Start 09/06/18 at 10:00 Famotidine (Pepcid) 20 mg DAILY PO Last administered on 09/11/18at 10:08; Admin Dose 20 MG; Start 09/05/18 at 10:00 Metoprolol Succinate (Toprol Xl) 25 mg DAILY PO Last administered on 09/11/18 10:08; Admin Dose 25 MG; Start 09/05/18 at 10:00 Ranolazine (Ranexa) 1,000 mg Q12 PO Last administered on 09/11/18 10:08; Admin Dose 1,000 MG; Start 09/05/18 at 10:00 Linagliptin (Tradjenta) 5 mg DAILY PO Last administered on 09/11/18 10:09; Admin Dose 5 MG; Start 09/05/18 at 10:00 Diagnostic Test (Pha) (Accu-Chek) 1 ea 02 XX ; Start 09/06/18 at 02:00 Insulin Aspart (Novolog Insulin Pen) 5 unit WITH MEALS SC Last administered on 09/11/18 12:05; Admin Dose 5 UNIT; Start 09/05/18 at 12:00 Enoxaparin Sodium (Lovenox) 30 mg DAILY SC Last administered on 09/11/18 10:11; Admin Dose 30 MG; Start 09/06/18 at 09:00 Losartan Potassium (Cozaar) 12.5 mg DAILY PO Last administered on 09/11/18 10:07; Admin Dose 12.5 MG; Start 09/07/18 at 09:00 Insulin Aspart (Novolog Insulin Pen) NOVOLOG *MILD* ALGORITHM WITH MEALS BEDTIME SC Last administered on 09/11/18 12:05; Admin Dose 2 UNIT; Start 09/07/18 at 18:00 Miscellaneous Information 1 ea NOTE XX ; Start 09/07/18 at 14:00 Glucose (Glutose) 15 gm Q15M PRN PO DECREASED GLUCOSE; Start 09/07/18 at 14:00 Glucose (Glutose) 22.5 gm Q15M PRN PO DECREASED GLUCOSE; Start 09/07/18 at 14:00 Dextrose (D50w Syringe) 25 ml Q15M PRN IV DECREASED GLUCOSE; Start 09/07/18 at 14:00 Dextrose (D50w Syringe) 50 ml Q15M PRN IV DECREASED GLUCOSE; Start 09/07/18 at 14:00 Glucagon (Glucagen) 1 mg Q15M PRN IM DECREASED GLUCOSE; Start 09/07/18 at 14:00 Glucose (Glutose) 15 gm Q15M PRN BUCCAL DECREASED GLUCOSE; Start 09/07/18 at 14:00 Albuterol/ Ipratropium (Duoneb) 3 ml Q6H RESP THERAPY HHN Last administered on 09/11/18at 07:44; Admin Dose 3 ML; Start 09/08/18 at 14:00 Docusate Sodium (Colace) 100 mg BID PO ; Start 09/11/18 at 21:00 Bisacodyl (Dulcolax) 5 mg DAILY PRN PO CONSTIPATION Last administered on 09/11/18at 12:07; Admin Dose 5 MG; Start 09/11/18 at 12:00 Assessment/Plan Hospital Course (Demo Recall) IMP: 1. Central bronchiectasis/bronchial wall thickening and tree-in-bud micronodules--findings consistent with an indolent infectious bronchiolitis, such a OSVALDO vs.fungal. Doubt ABPA/ RECS: 1. Obtain sputa for AFB x 3 (for OSVALDO culture) 2. Serum TB Qaunt Gold 3. Cocci serology 4. Total IgE 5. Serum Ig subclasses. Consider discharge this work-up can be performed as an outpatient. DOLORES CHANEL MD, [facility] Sep 11, 2018 13:19
[2018-09-11] MEDS: DOCUSATE SODIUM 100 MG CAP PO SCH (20:30)
[2018-09-11] MEDS: ATORVASTATIN 40 MG TAB PO SCH (20:30)
[2018-09-12] VITALS (7 sets, daily range): BP systolic 103–135; BP diastolic 53–64; PULSE 58–77; RESP 18
[2018-09-12] MEDS: ACCU-CHEK XX SCH (01:21)
[2018-09-12] MEDS: ALBUTEROL/IPRATROPIUM (NEB) 3 ML AMP HHN SCH ×4 (02:08→20:00)
[2018-09-12] MEDS: INSULIN ASPART [NOVOLOG] 3 ML PEN SC SCH ×7 (07:36→20:34)
[2018-09-12] MEDS: LOSARTAN 50 MG TAB PO SCH (08:44)
[2018-09-12] MEDS: DUTASTERIDE 0.5 MG CAP PO SCH (08:44)
[2018-09-12] MEDS: METOPROLOL (XL) 25 MG TAB PO SCH (08:45)
[2018-09-12] MEDS: DOCUSATE SODIUM 100 MG CAP PO SCH ×2 (08:45→19:36)
[2018-09-12] MEDS: FAMOTIDINE 20 MG TAB PO SCH (08:45)
[2018-09-12] MEDS: CLOPIDOGREL 75 MG TAB PO SCH (08:45)
[2018-09-12] MEDS: LINAGLIPTIN 5 MG TABLET PO SCH (08:45)
[2018-09-12] MEDS: RANOLAZINE (SR) 500 MG TAB PO SCH ×2 (08:51→19:36)
[2018-09-12] MEDS: ENOXAPARIN 30 MG/0.3 ML SYG SC SCH (08:53)
--- NOTE | 2018-09-12 10:31 | CONS ---
Consult Date/Type/Reason Admit Date/Time Sep 07, 2018 at 16:34 Initial Consult Date 09/10/18 Type of Consult Pulmonary Requesting Provider: SAMSON FREEMAN Date/Time of Note DATE: 09/12/18 TIME: 10:31 Subjective Patient stable this morning denies shortness of breath. Is comfortable occasional cough. Objective Vital Signs Date Temp Pulse Resp B/P (MAP) Pulse Ox O2 O2 Flow FiO2 Time Delivery Rate 09/12/18 98.0 66 18 122/60 98 Room Air 07:24 (80) 09/12/18 21 02:08 Intake and Output 09/11/18 09/11/18 09/12/18 1515:00 23:00 07:00 IntakeIntake Total 1300 ml 500 ml 320 ml OutputOutput Total 3 ml 2 ml BalanceBalance 1300 ml 497 ml 318 ml Exam GENERAL: VITAL SIGNS: per chart NECK: Supple. No JVD or lymphadenopathy. CARDIAC EXAM: S1, S2. No added sounds or murmurs. CHEST: clear bilaterally, No added sounds, rales or wheezes ABDOMEN: Soft, nontender. No guarding or rebound. EXTREMITIES: No cyanosis, clubbing or edema. NEUROLOGIC: Generalized weakness. No focal deficits. Vent Setting Fraction of Inspired Oxygen pe: 21 Results/Medications Results 24 hrs Laboratory Tests Test 09/11/18 12:00 09/11/18 19:02 09/11/18 20:29 09/12/18 07:32 Bedside Glucose 216 203 167 152 Medications Current Medications Atorvastatin Calcium (Lipitor) 40 mg QHS PO Last administered on 09/11/18 20:30; Admin Dose 40 MG; Start 09/05/18 at 21:00 Clopidogrel Bisulfate (plaVIX) 75 mg DAILY PO Last administered on 09/12/18 08:45; Admin Dose 75 MG; Start 09/05/18 at 10:00 Dutasteride (Avodart) 0.5 mg DAILY PO Last administered on 09/12/18 08:44; Admin Dose 0.5 MG; Start 09/06/18 at 10:00 Famotidine (Pepcid) 20 mg DAILY PO Last administered on 09/12/18 08:45; Admin Dose 20 MG; Start 09/05/18 at 10:00 Metoprolol Succinate (Toprol Xl) 25 mg DAILY PO Last administered on 09/12/18 08:45; Admin Dose 25 MG; Start 09/05/18 at 10:00 Ranolazine (Ranexa) 1,000 mg Q12 PO Last administered on 09/12/18 08:51; Admin Dose 1,000 MG; Start 09/05/18 at 10:00 Linagliptin (Tradjenta) 5 mg DAILY PO Last administered on 09/12/18 08:45; Admin Dose 5 MG; Start 09/05/18 at 10:00 Diagnostic Test (Pha) (Accu-Chek) 1 ea 02 XX ; Start 09/06/18 at 02:00 Insulin Aspart (Novolog Insulin Pen) 5 unit WITH MEALS SC Last administered on 09/12/18 07:37; Admin Dose 5 UNIT; Start 09/05/18 at 12:00 Enoxaparin Sodium (Lovenox) 30 mg DAILY SC Last administered on 09/12/18 08:53; Admin Dose 30 MG; Start 09/06/18 at 09:00 Losartan Potassium (Cozaar) 12.5 mg DAILY PO Last administered on 09/12/18 08:44; Admin Dose 12.5 MG; Start 09/07/18 at 09:00 Insulin Aspart (Novolog Insulin Pen) NOVOLOG *MILD* ALGORITHM WITH MEALS BEDTIME SC Last administered on 09/12/18 07:36; Admin Dose 1 UNIT; Start 09/07/18 at 18:00 Miscellaneous Information 1 ea NOTE XX ; Start 09/07/18 at 14:00 Glucose (Glutose) 15 gm Q15M PRN PO DECREASED GLUCOSE; Start 09/07/18 at 14:00 Glucose (Glutose) 22.5 gm Q15M PRN PO DECREASED GLUCOSE; Start 09/07/18 at 14:00 Dextrose (D50w Syringe) 25 ml Q15M PRN IV DECREASED GLUCOSE; Start 09/07/18 at 14:00 Dextrose (D50w Syringe) 50 ml Q15M PRN IV DECREASED GLUCOSE; Start 09/07/18 at 14:00 Glucagon (Glucagen) 1 mg Q15M PRN IM DECREASED GLUCOSE; Start 09/07/18 at 14:00 Glucose (Glutose) 15 gm Q15M PRN BUCCAL DECREASED GLUCOSE; Start 09/07/18 at 14:00 Albuterol/ Ipratropium (Duoneb) 3 ml Q6H RESP THERAPY HHN Last administered on 09/12/18at 02:08; Admin Dose 3 ML; Start 09/08/18 at 14:00 Docusate Sodium (Colace) 100 mg BID PO Last administered on 09/12/18at 08:45; Admin Dose 100 MG; Start 09/11/18 at 21:00 Bisacodyl (Dulcolax) 5 mg DAILY PRN PO CONSTIPATION Last administered on 09/11/18at 12:07; Admin Dose 5 MG; Start 09/11/18 at 12:00 Assessment/Plan Hospital Course (Demo Recall) IMP: 1. Central bronchiectasis/bronchial wall thickening and tree-in-bud micronodules--findings consistent with an indolent infectious bronchiolitis, such a OSVALDO vs.fungal. Doubt ABPA/ RECS: 1. Obtain sputa for AFB x 3 (for OSVALDO culture) 2. Serum TB Qaunt Gold 3. Cocci serology 4. Total IgE 5. Serum Ig subclasses. Discharge planning okay from pulmonary standpoint outpatient follow-up. DOLORES CHANEL MD, [facility] Sep 12, 2018 10:31
[2018-09-12] MEDS: ACETAMINOPHEN 325 MG TAB PO PRN ×2 (12:09→23:59)
--- NOTE | 2018-09-12 17:24 | PN ---
Date/Time of Note Date/Time of Note DATE: 09/12/18 TIME: 17:24 Assessment/Plan VTE Prophylaxis Risk score (from Ns)>0 risk: 4 SCD applied (from [facility] [place]): No SCD contraindicated: other Pharmacological prophylaxis: other Pharm contraindication: other Lines/Catheters IV Catheter Type (from [facility]): Saline Lock Assessment/Plan Assessment/Plan - Left bronchiolitis and left lower lobe bronchiectasis. Dr. Valladares is asked to see patient in pulmonology consultation. - Atrial fibrillation with ventricular response, short episode, converted back to sinus rhythm. Dr. Laureano is following in cardiology consultation. - Chest pain most likely related to above, [place] ruled out - Coronary artery disease, history of PCI. Continue Plavix. - Diabetes mellitus type 2, continue Tradjenta NovoLog, blood sugar is well controlled. - Hypertension, continue Cozaar - Dyslipidemia, continue statin. - Healed fracture of the lateral left fifth rib per CT. Further recommendations based on clinical course. Plan of care discussed with Dr. Thurman. Results 24hrs Laboratory Tests Test 09/11/18 19:02 09/11/18 20:29 09/12/18 07:32 09/12/18 11:17 Bedside Glucose 203 167 152 211 Subjective 24 Hr Interval Summary Constitutional: requiring O2 Eyes: no complaints ENT: no complaints Respiratory: shortness of breath Cardiovascular: no complaints Gastrointestinal: no complaints Genitourinary: no complaints Musculoskeletal: no complaints Skin: no complaints Neurologic: no complaints Endocrine: no complaints Lymphatic: no complaints Psychological: nl mood/affect Immunologic: no complaints Exam/Review of Systems Exam Vitals Vital Signs Date Temp Pulse Resp B/P (MAP) Pulse Ox O2 O2 Flow FiO2 Time Delivery Rate 09/12/18 98.6 66 18 132/64 98 Room Air 15:17 (86) 09/12/18 21 14:24 Intake and Output 09/11/18 09/11/18 09/12/18 1515:00 23:00 07:00 IntakeIntake Total 1300 ml 500 ml 320 ml OutputOutput Total 3 ml 2 ml BalanceBalance 1300 ml 497 ml 318 ml Constitutional: alert, oriented, well developed Psych: nl mood/affect Head: atraumatic Eyes: nl lids, nl sclera ENMT: nl external ears & nose Neck: non-tender Respiratory: diminished breath sounds (at bases bilaterally) Cardiovascular: nl pulses, other (s1s2) Gastrointestinal: soft, non-tender Musculoskeletal: nl extremities to inspection Extremities: normal pulses Neurological: nl speech, other (alert/feponsive) Skin: nl turgor Lymph: nontender Results Results 24hrs Laboratory Tests Test 09/11/18 19:02 09/11/18 20:29 09/12/18 07:32 09/12/18 11:17 Bedside Glucose 203 167 152 211 Medications Medication Current Medications Atorvastatin Calcium (Lipitor) 40 mg QHS PO Last administered on 09/11/18 20:30; Admin Dose 40 MG; Start 09/05/18 at 21:00 Clopidogrel Bisulfate (plaVIX) 75 mg DAILY PO Last administered on 09/12/18 08:45; Admin Dose 75 MG; Start 09/05/18 at 10:00 Dutasteride (Avodart) 0.5 mg DAILY PO Last administered on 09/12/18 08:44; Admin Dose 0.5 MG; Start 09/06/18 at 10:00 Famotidine (Pepcid) 20 mg DAILY PO Last administered on 09/12/18 08:45; Admin Dose 20 MG; Start 09/05/18 at 10:00 Metoprolol Succinate (Toprol Xl) 25 mg DAILY PO Last administered on 09/12/18 08:45; Admin Dose 25 MG; Start 09/05/18 at 10:00 Ranolazine (Ranexa) 1,000 mg Q12 PO Last administered on 09/12/18 08:51; Admin Dose 1,000 MG; Start 09/05/18 at 10:00 Linagliptin (Tradjenta) 5 mg DAILY PO Last administered on 09/12/18 08:45; Admin Dose 5 MG; Start 09/05/18 at 10:00 Diagnostic Test (Pha) (Accu-Chek) 1 ea 02 XX ; Start 09/06/18 at 02:00 Insulin Aspart (Novolog Insulin Pen) 5 unit WITH MEALS SC Last administered on 09/12/18 11:25; Admin Dose 5 UNIT; Start 09/05/18 at 12:00 Enoxaparin Sodium (Lovenox) 30 mg DAILY SC Last administered on 09/12/18 08:53; Admin Dose 30 MG; Start 09/06/18 at 09:00 Losartan Potassium (Cozaar) 12.5 mg DAILY PO Last administered on 09/12/18 08:44; Admin Dose 12.5 MG; Start 09/07/18 at 09:00 Insulin Aspart (Novolog Insulin Pen) NOVOLOG *MILD* ALGORITHM WITH MEALS BEDTIME SC Last administered on 09/12/18 11:25; Admin Dose 2 UNIT; Start 09/07/18 at 18:00 Miscellaneous Information 1 ea NOTE XX ; Start 09/07/18 at 14:00 Glucose (Glutose) 15 gm Q15M PRN PO DECREASED GLUCOSE; Start 09/07/18 at 14:00 Glucose (Glutose) 22.5 gm Q15M PRN PO DECREASED GLUCOSE; Start 09/07/18 at 14:00 Dextrose (D50w Syringe) 25 ml Q15M PRN IV DECREASED GLUCOSE; Start 09/07/18 at 14:00 Dextrose (D50w Syringe) 50 ml Q15M PRN IV DECREASED GLUCOSE; Start 09/07/18 at 14:00 Glucagon (Glucagen) 1 mg Q15M PRN IM DECREASED GLUCOSE; Start 09/07/18 at 14:00 Glucose (Glutose) 15 gm Q15M PRN BUCCAL DECREASED GLUCOSE; Start 09/07/18 at 14:00 Albuterol/ Ipratropium (Duoneb) 3 ml Q6H RESP THERAPY HHN Last administered on 09/12/18at 14:22; Admin Dose 3 ML; Start 09/08/18 at 14:00 Docusate Sodium (Colace) 100 mg BID PO Last administered on 09/12/18 08:45; Admin Dose 100 MG; Start 09/11/18 at 21:00 Bisacodyl (Dulcolax) 5 mg DAILY PRN PO CONSTIPATION Last administered on 09/11/18 12:07; Admin Dose 5 MG; Start 09/11/18 at 12:00 Acetaminophen (Tylenol Tab) 650 mg Q6H PRN PO MILD PAIN(1-3)OR ELEVATED TEMP Last administered on 09/12/18 12:09; Admin Dose 650 MG; Start 09/12/18 at 12:00 CRYS MUSA Sep 12, 2018 17:24
--- NOTE | 2018-09-12 17:24 | PN ---
Date/Time of Note Date/Time of Note DATE: 09/11/18 TIME: 13:03 Assessment/Plan VTE Prophylaxis Risk score (from Ns)>0 risk: 2 SCD applied (from [facility] – [place]): No SCD contraindicated: other Pharmacological prophylaxis: other Pharm contraindication: other Lines/Catheters IV Catheter Type (from [facility]): Saline Lock Assessment/Plan Assessment/Plan - Left bronchiolitis and left lower lobe bronchiectasis. Dr. Valladares is asked to see patient in pulmonology consultation. - Atrial fibrillation with ventricular response, short episode, converted back to sinus rhythm. Dr. Laureano is following in cardiology consultation. - Chest pain most likely related to above, [place] ruled out - Coronary artery disease, history of PCI. Continue Plavix. - Diabetes mellitus type 2, continue Tradjenta NovoLog, blood sugar is well controlled. - Hypertension, continue Cozaar - Dyslipidemia, continue statin. - Healed fracture of the lateral left fifth rib per CT. Further recommendations based on clinical course. Plan of care discussed with Dr. Thurman. Results 24hrs Laboratory Tests Test 09/10/18 14:16 09/10/18 17:26 09/10/18 20:48 09/11/18 07:49 Immunoglobulin G 892 Immunoglobulin A 358 Immunoglobulin M < 25 L Bedside Glucose 147 166 151 Test 09/11/18 12:00 Bedside Glucose 216 Subjective 24 Hr Interval Summary Free Text/Dictation pending pulmonary eval Eyes: no complaints ENT: no complaints Respiratory: shortness of breath Cardiovascular: no complaints Gastrointestinal: no complaints Genitourinary: no complaints Musculoskeletal: other (general weakness) Skin: no complaints Neurologic: no complaints Endocrine: no complaints Psychological: nl mood/affect Exam/Review of Systems Exam Vitals Vital Signs Date Temp Pulse Resp B/P (MAP) Pulse Ox O2 O2 Flow FiO2 Time Delivery Rate 09/11/18 98.9 74 16 128/63 98 Room Air 11:22 (84) 09/11/18 21 07:45 Intake and Output 09/10/18 09/10/18 09/11/18 1414:59 22:59 06:59 IntakeIntake Total 800 ml 500 ml OutputOutput Total 1 ml BalanceBalance 800 ml 499 ml Constitutional: alert, oriented, well developed, frail Psych: nl mood/affect Eyes: nl lids, nl sclera, PERRL ENMT: nl external ears & nose Neck: non-tender Respiratory: diminished breath sounds (bilaterally at bases) Cardiovascular: nl pulses, other (s1s2) Gastrointestinal: soft, non-tender Musculoskeletal: nl extremities to inspection Extremities: normal pulses Neurological: nl speech, other (alert/reponsive) Skin: nl turgor Lymph: nontender Results Results 24hrs Laboratory Tests Test 09/10/18 14:16 09/10/18 17:26 09/10/18 20:48 09/11/18 07:49 Immunoglobulin G 892 Immunoglobulin A 358 Immunoglobulin M < 25 L Bedside Glucose 147 166 151 Test 09/11/18 12:00 Bedside Glucose 216 Medications Medication Current Medications Atorvastatin Calcium (Lipitor) 40 mg QHS PO Last administered on 09/10/18 20:49; Admin Dose 40 MG; Start 09/05/18 at 21:00 Clopidogrel Bisulfate (plaVIX) 75 mg DAILY PO Last administered on 09/11/18 10:08; Admin Dose 75 MG; Start 09/05/18 at 10:00 Dutasteride (Avodart) 0.5 mg DAILY PO Last administered on 09/11/18 10:08; Admin Dose 0.5 MG; Start 09/06/18 at 10:00 Famotidine (Pepcid) 20 mg DAILY PO Last administered on 09/11/18 10:08; Admin Dose 20 MG; Start 09/05/18 at 10:00 Metoprolol Succinate (Toprol Xl) 25 mg DAILY PO Last administered on 09/11/18 10:08; Admin Dose 25 MG; Start 09/05/18 at 10:00 Ranolazine (Ranexa) 1,000 mg Q12 PO Last administered on 09/11/18 10:08; Admin Dose 1,000 MG; Start 09/05/18 at 10:00 Linagliptin (Tradjenta) 5 mg DAILY PO Last administered on 09/11/18 10:09; Admin Dose 5 MG; Start 09/05/18 at 10:00 Diagnostic Test (Pha) (Accu-Chek) 1 ea 02 XX ; Start 09/06/18 at 02:00 Insulin Aspart (Novolog Insulin Pen) 5 unit WITH MEALS SC Last administered on 09/11/18 12:05; Admin Dose 5 UNIT; Start 09/05/18 at 12:00 Enoxaparin Sodium (Lovenox) 30 mg DAILY SC Last administered on 09/11/18at 10:11; Admin Dose 30 MG; Start 09/06/18 at 09:00 Losartan Potassium (Cozaar) 12.5 mg DAILY PO Last administered on 09/11/18at 10:07; Admin Dose 12.5 MG; Start 09/07/18 at 09:00 Insulin Aspart (Novolog Insulin Pen) NOVOLOG *MILD* ALGORITHM WITH MEALS BEDTIME SC Last administered on 09/11/18at 12:05; Admin Dose 2 UNIT; Start 09/07/18 at 18:00 Miscellaneous Information 1 ea NOTE XX ; Start 09/07/18 at 14:00 Glucose (Glutose) 15 gm Q15M PRN PO DECREASED GLUCOSE; Start 09/07/18 at 14:00 Glucose (Glutose) 22.5 gm Q15M PRN PO DECREASED GLUCOSE; Start 09/07/18 at 14:00 Dextrose (D50w Syringe) 25 ml Q15M PRN IV DECREASED GLUCOSE; Start 09/07/18 at 14:00 Dextrose (D50w Syringe) 50 ml Q15M PRN IV DECREASED GLUCOSE; Start 09/07/18 at 14:00 Glucagon (Glucagen) 1 mg Q15M PRN IM DECREASED GLUCOSE; Start 09/07/18 at 14:00 Glucose (Glutose) 15 gm Q15M PRN BUCCAL DECREASED GLUCOSE; Start 09/07/18 at 14:00 Albuterol/ Ipratropium (Duoneb) 3 ml Q6H RESP THERAPY HHN Last administered on 09/11/18at 07:44; Admin Dose 3 ML; Start 09/08/18 at 14:00 Docusate Sodium (Colace) 100 mg BID PO ; Start 09/11/18 at 21:00 Bisacodyl (Dulcolax) 5 mg DAILY PRN PO CONSTIPATION Last administered on 09/11/18 12:07; Admin Dose 5 MG; Start 09/11/18 at 12:00 CRYS MUSA Sep 11, 2018 13:23
[2018-09-12] MEDS: ATORVASTATIN 40 MG TAB PO SCH (19:36)
[2018-09-13] MEDS: ALBUTEROL/IPRATROPIUM (NEB) 3 ML AMP HHN SCH ×4 (01:49→20:19)
[2018-09-13] MEDS: ACCU-CHEK XX SCH ×2 (02:00→22:13)
[2018-09-13 04:04] VITALS: BP 124/65; PULSE 75; RESP 18
[2018-09-13 07:17] VITALS: BP 113/59; PULSE 63; RESP 18
[2018-09-13] MEDS: INSULIN ASPART [NOVOLOG] 3 ML PEN SC SCH ×7 (07:25→20:49)
[2018-09-13] MEDS: LOSARTAN 50 MG TAB PO SCH (08:10)
[2018-09-13] MEDS: CLOPIDOGREL 75 MG TAB PO SCH (08:10)
[2018-09-13] MEDS: RANOLAZINE (SR) 500 MG TAB PO SCH ×2 (08:10→20:40)
[2018-09-13] MEDS: FAMOTIDINE 20 MG TAB PO SCH (08:10)
[2018-09-13] MEDS: DUTASTERIDE 0.5 MG CAP PO SCH (08:10)
[2018-09-13] MEDS: METOPROLOL (XL) 25 MG TAB PO SCH (08:11)
[2018-09-13] MEDS: DOCUSATE SODIUM 100 MG CAP PO SCH ×2 (08:11→20:40)
[2018-09-13] MEDS: LINAGLIPTIN 5 MG TABLET PO SCH (08:11)
[2018-09-13] MEDS: ENOXAPARIN 30 MG/0.3 ML SYG SC SCH (08:18)
--- NOTE | 2018-09-13 10:50 | CONS ---
Consult Date/Type/Reason Admit Date/Time Sep 07, 2018 at 16:34 Initial Consult Date 09/10/18 Type of Consult Pulmonary Requesting Provider: SAMSON FREEMAN Date/Time of Note DATE: 09/13/18 TIME: 10:47 Subjective Patient stable. No new events. Objective Vital Signs Date Temp Pulse Resp B/P (MAP) Pulse Ox O2 O2 Flow FiO2 Time Delivery Rate 09/13/18 66 18 98 21 07:21 09/13/18 98.0 113/59 Room Air 07:17 (77) Intake and Output 09/12/18 09/12/18 09/13/18 1515:00 23:00 07:00 IntakeIntake Total 360 ml 540 ml 300 ml OutputOutput Total 3 ml 2 ml BalanceBalance 360 ml 537 ml 298 ml Exam GENERAL: VITAL SIGNS: per chart NECK: Supple. No JVD or lymphadenopathy. CARDIAC EXAM: S1, S2. No added sounds or murmurs. CHEST: clear bilaterally, No added sounds, rales or wheezes ABDOMEN: Soft, nontender. No guarding or rebound. EXTREMITIES: No cyanosis, clubbing or edema. NEUROLOGIC: Generalized weakness. No focal deficits. Vent Setting Fraction of Inspired Oxygen pe: 21 Results/Medications Result Diagram: 09/13/18 0518 09/13/18 0518 Results 24 hrs Laboratory Tests Test 09/12/18 11:17 09/12/18 17:21 09/12/18 18:02 09/12/18 19:38 Bedside Glucose 211 242 H 271 H White Blood Count 3.5 #L Red Blood Count 4.45 L Hemoglobin 13.3 L Hematocrit 39.2 L Mean Corpuscular Volume 88.1 Mean Corpuscular 29.9 Hemoglobin Mean Corpuscular 33.9 Hemoglobin Concent Red Cell Distribution 14.0 Width Platelet Count 168 Mean Platelet Volume 10.1 Immature Granulocytes % 0.600 H Neutrophils % 43.8 Lymphocytes % 41.6 Monocytes % 10.8 Eosinophils % 2.3 Basophils % 0.9 Nucleated Red Blood 0.0 Cells % Immature Granulocytes # 0.020 Neutrophils # 1.5 L Lymphocytes # 1.5 Monocytes # 0.4 Eosinophils # 0.1 Basophils # 0.0 Nucleated Red Blood 0.0 Cells # Sodium Level 139 Potassium Level 4.2 Chloride Level 106 Carbon Dioxide Level 26 Anion Gap 7 Blood Urea Nitrogen 20 Creatinine 0.66 Est Glomerular Filtrat Rate mL/min Glucose Level 199 Calcium Level 9.4 Test 09/12/18 20:34 09/12/18 23:14 09/13/18 05:18 09/13/18 07:21 Bedside Glucose 160 139 Troponin I < 0.012 < 0.012 White Blood Count 3.5 L Red Blood Count 4.65 L Hemoglobin 13.6 L Hematocrit 40.3 L Mean Corpuscular Volume 86.7 Mean Corpuscular 29.2 Hemoglobin Mean Corpuscular 33.7 Hemoglobin Concent Red Cell Distribution 14.0 Width Platelet Count 165 Mean Platelet Volume 10.2 Immature Granulocytes % 0.800 H Neutrophils % 37.8 L Lymphocytes % 46.7 Monocytes % 11.6 H Eosinophils % 2.5 Basophils % 0.6 Nucleated Red Blood 0.0 Cells % Immature Granulocytes # 0.030 Neutrophils # 1.3 L Lymphocytes # 1.7 Monocytes # 0.4 Eosinophils # 0.1 Basophils # 0.0 Nucleated Red Blood 0.0 Cells # Sodium Level 141 Potassium Level 3.9 Chloride Level 107 Carbon Dioxide Level 25 Anion Gap 9 Blood Urea Nitrogen 17 Creatinine 0.64 Est Glomerular Filtrat Rate mL/min Glucose Level 145 # Calcium Level 9.0 Medications Current Medications Atorvastatin Calcium (Lipitor) 40 mg QHS PO Last administered on 09/12/18 19:36; Admin Dose 40 MG; Start 09/05/18 at 21:00 Clopidogrel Bisulfate (plaVIX) 75 mg DAILY PO Last administered on 09/13/18 08:10; Admin Dose 75 MG; Start 09/05/18 at 10:00 Dutasteride (Avodart) 0.5 mg DAILY PO Last administered on 09/13/18 08:10; Admin Dose 0.5 MG; Start 09/06/18 at 10:00 Famotidine (Pepcid) 20 mg DAILY PO Last administered on 09/13/18 08:10; Admin Dose 20 MG; Start 09/05/18 at 10:00 Metoprolol Succinate (Toprol Xl) 25 mg DAILY PO Last administered on 09/13/18 08:11; Admin Dose 25 MG; Start 09/05/18 at 10:00 Ranolazine (Ranexa) 1,000 mg Q12 PO Last administered on 09/13/18 08:10; Admin Dose 1,000 MG; Start 09/05/18 at 10:00 Linagliptin (Tradjenta) 5 mg DAILY PO Last administered on 09/13/18at 08:11; Admin Dose 5 MG; Start 09/05/18 at 10:00 Diagnostic Test (Pha) (Accu-Chek) 1 ea 02 XX ; Start 09/06/18 at 02:00 Insulin Aspart (Novolog Insulin Pen) 5 unit WITH MEALS SC Last administered on 09/13/18at 07:30; Admin Dose 5 UNIT; Start 09/05/18 at 12:00 Enoxaparin Sodium (Lovenox) 30 mg DAILY SC Last administered on 09/13/18at 08:18; Admin Dose 30 MG; Start 09/06/18 at 09:00 Losartan Potassium (Cozaar) 12.5 mg DAILY PO Last administered on 09/13/18at 08:10; Admin Dose 12.5 MG; Start 09/07/18 at 09:00 Insulin Aspart (Novolog Insulin Pen) NOVOLOG *MILD* ALGORITHM WITH MEALS BEDTIM E SC Last administered on 09/12/18at 17:29; Admin Dose 3 UNIT; Start 09/07/18 at 18:00 Miscellaneous Information 1 ea NOTE XX ; Start 09/07/18 at 14:00 Glucose (Glutose) 15 gm Q15M PRN PO DECREASED GLUCOSE; Start 09/07/18 at 14:00 Glucose (Glutose) 22.5 gm Q15M PRN PO DECREASED GLUCOSE; Start 09/07/18 at 14:00 Dextrose (D50w Syringe) 25 ml Q15M PRN IV DECREASED GLUCOSE; Start 09/07/18 at 14:00 Dextrose (D50w Syringe) 50 ml Q15M PRN IV DECREASED GLUCOSE; Start 09/07/18 at 14:00 Glucagon (Glucagen) 1 mg Q15M PRN IM DECREASED GLUCOSE; Start 09/07/18 at 14:00 Glucose (Glutose) 15 gm Q15M PRN BUCCAL DECREASED GLUCOSE; Start 09/07/18 at 14:00 Albuterol/ Ipratropium (Duoneb) 3 ml Q6H RESP THERAPY HHN Last administered on 09/13/18at 07:21; Admin Dose 3 ML; Start 09/08/18 at 14:00 Docusate Sodium (Colace) 100 mg BID PO Last administered on 09/13/18at 08:11; Admin Dose 100 MG; Start 09/11/18 at 21:00 Bisacodyl (Dulcolax) 5 mg DAILY PRN PO CONSTIPATION Last administered on 09/11/18at 12:07; Admin Dose 5 MG; Start 09/11/18 at 12:00 Acetaminophen (Tylenol Tab) 650 mg Q6H PRN PO MILD PAIN(1-3)OR ELEVATED TEMP Last administered on 09/12/18at 23:59; Admin Dose 650 MG; Start 09/12/18 at 12:00 Assessment/Plan Hospital Course (Demo Recall) IMP: 1. Central bronchiectasis/bronchial wall thickening and tree-in-bud micronodules--findings consistent with an indolent infectious bronchiolitis, such a OSVALDO vs.fungal. Doubt ABPA/ RECS: 1. Obtain sputa for AFB x 3 (for OSVALDO culture) 2. Serum TB Qaunt Gold 3. Cocci serology 4. Total IgE 5. Serum Ig subclasses. Discharge planning okay from pulmonary standpoint outpatient follow-up.Discussed with primary team nurse practitioner DOLORES CHANEL [facility], [facility] Sep 13, 2018 10:50
[2018-09-13 11:51] VITALS: BP 107/58; PULSE 64; RESP 18
--- NOTE | 2018-09-13 12:59 | PN ---
Date/Time of Note Date/Time of Note DATE: 09/13/18 TIME: 12:49 Assessment/Plan VTE Prophylaxis Risk score (from Ns)>0 risk: 4 SCD applied (from [facility] [place]): No SCD contraindicated: other Pharmacological prophylaxis: other Pharm contraindication: other Lines/Catheters IV C[facility]ter Type (from [facility] Saline Lock Assessment/Plan Assessment/Plan - Acute Headache - CT scan with contrast- FU result - Generalized body pain- will do Body scan- fu result - Left bronchiolitis and left lower lobe bronchiectasis. - per Dr. Valladares pulmonology consultation. - Atrial fibrillation with ventricular response, short episode, converted back to sinus rhythm. Dr. Laureano is following in cardiology consultation. - Chest pain most likely related to above, CT ruled out - Coronary artery disease, history of PCI. Continue Plavix. - Diabetes mellitus type 2, continue Tradjenta NovoLog, blood sugar is well controlled. - Hypertension, continue Cozaar - Dyslipidemia, continue statin. - Healed fracture of the lateral left fifth rib per CT - c/o pain off and on Further recommendations based on clinical course. Plan of care discussed with Dr. Thurman. Result Diagram: 09/13/1851709/13/18 0518 Results 24hrs Laboratory Tests Test 09/12/18 17:21 09/12/18 18:02 09/12/18 19:38 09/12/18 20:34 Bedside Glucose 242 H 271 H 160 White Blood Count 3.5 #L Red Blood Count 4.45 L Hemoglobin 13.3 L Hematocrit 39.2 L Mean Corpuscular Volume 88.1 Mean Corpuscular 29.9 Hemoglobin Mean Corpuscular 33.9 Hemoglobin Concent Red Cell Distribution 14.0 Width Platelet Count 168 Mean Platelet Volume 10.1 Immature Granulocytes % 0.600 H Neutrophils % 43.8 Lymphocytes % 41.6 Monocytes % 10.8 Eosinophils % 2.3 Basophils % 0.9 Nucleated Red Blood 0.0 Cells % Immature Granulocytes # 0.020 Neutrophils # 1.5 L Lymphocytes # 1.5 Monocytes # 0.4 Eosinophils # 0.1 Basophils # 0.0 Nucleated Red Blood 0.0 Cells # Sodium Level 139 Potassium Level 4.2 Chloride Level 106 Carbon Dioxide Level 26 Anion Gap 7 Blood Urea Nitrogen 20 Creatinine 0.66 Est Glomerular Filtrat Rate mL/min Glucose Level 199 Calcium Level 9.4 Test 09/12/18 23:14 09/13/18 05:18 09/13/18 07:21 09/13/18 10:58 Troponin I < 0.012 < 0.012 < 0.012 White Blood Count 3.5 L Red Blood Count 4.65 L Hemoglobin 13.6 L Hematocrit 40.3 L Mean Corpuscular Volume 86.7 Mean Corpuscular 29.2 Hemoglobin Mean Corpuscular 33.7 Hemoglobin Concent Red Cell Distribution 14.0 Width Platelet Count 165 Mean Platelet Volume 10.2 Immature Granulocytes % 0.800 H Neutrophils % 37.8 L Lymphocytes % 46.7 Monocytes % 11.6 H Eosinophils % 2.5 Basophils % 0.6 Nucleated Red Blood 0.0 Cells % Immature Granulocytes # 0.030 Neutrophils # 1.3 L Lymphocytes # 1.7 Monocytes # 0.4 Eosinophils # 0.1 Basophils # 0.0 Nucleated Red Blood 0.0 Cells # Sodium Level 141 Potassium Level 3.9 Chloride Level 107 Carbon Dioxide Level 25 Anion Gap 9 Blood Urea Nitrogen 17 Creatinine 0.64 Est Glomerular Filtrat Rate mL/min Glucose Level 145 # Calcium Level 9.0 Bedside Glucose 139 Test 09/13/18 11:32 Bedside Glucose 243 H Subjective 24 Hr Interval Summary Free Text/Dictation - c/o Headache- will do CT head with contrast - c/o generalized body pain- will do Body scan- fu - Pending sputum micro lab test- fu results dw staff Constitutional: requiring O2 ENT: no complaints Respiratory: no complaints Cardiovascular: chest pain (c/o chest pain on and off) Gastrointestinal: no complaints Genitourinary: no complaints Musculoskeletal: bone/joint pain, restricted range of motion, other Neurologic: headache Psychological: nl mood/affect Immunologic: no complaints Exam/Review of Systems Exam Vitals Vital Signs Date Temp Pulse Resp B/P (MAP) Pulse Ox O2 O2 Flow FiO2 Time Delivery Rate 09/13/18 98.0 64 18 107/58 99 Room Air 11:51 (74) 09/13/18 21 07:21 Intake and Output 09/12/18 09/12/18 09/13/18 1515:00 23:00 07:00 IntakeIntake Total 360 ml 540 ml 300 ml OutputOutput Total 3 ml 2 ml BalanceBalance 360 ml 537 ml 298 ml Constitutional: alert, oriented, well developed Psych: nl mood/affect Head: normocephalic Eyes: nl lids, nl sclera ENMT: nl external ears & nose Neck: non-tender Respiratory: clear to auscultation Cardiovascular: nl pulses, other (s1s2) Gastrointestinal: soft, non-tender Musculoskeletal: nl extremities to inspection Extremities: normal pulses Neurological: nl speech Skin: nl turgor Lymph: nontender Results Results 24hrs Laboratory Tests Test 09/12/18 17:21 09/12/18 18:02 09/12/18 19:38 09/12/18 20:34 Bedside Glucose 242 H 271 H 160 White Blood Count 3.5 #L Red Blood Count 4.45 L Hemoglobin 13.3 L Hematocrit 39.2 L Mean Corpuscular Volume 88.1 Mean Corpuscular 29.9 Hemoglobin Mean Corpuscular 33.9 Hemoglobin Concent Red Cell Distribution 14.0 Width Platelet Count 168 Mean Platelet Volume 10.1 Immature Granulocytes % 0.600 H Neutrophils % 43.8 Lymphocytes % 41.6 Monocytes % 10.8 Eosinophils % 2.3 Basophils % 0.9 Nucleated Red Blood 0.0 Cells % Immature Granulocytes # 0.020 Neutrophils # 1.5 L Lymphocytes # 1.5 Monocytes # 0.4 Eosinophils # 0.1 Basophils # 0.0 Nucleated Red Blood 0.0 Cells # Sodium Level 139 Potassium Level 4.2 Chloride Level 106 Carbon Dioxide Level 26 Anion Gap 7 Blood Urea Nitrogen 20 Creatinine 0.66 Est Glomerular Filtrat Rate mL/min Glucose Level 199 Calcium Level 9.4 Test 09/12/18 23:14 09/13/18 05:18 09/13/18 07:21 09/13/18 10:58 Troponin I < 0.012 < 0.012 < 0.012 White Blood Count 3.5 L Red Blood Count 4.65 L Hemoglobin 13.6 L Hematocrit 40.3 L Mean Corpuscular Volume 86.7 Mean Corpuscular 29.2 Hemoglobin Mean Corpuscular 33.7 Hemoglobin Concent Red Cell Distribution 14.0 Width Platelet Count 165 Mean Platelet Volume 10.2 Immature Granulocytes % 0.800 H Neutrophils % 37.8 L Lymphocytes % 46.7 Monocytes % 11.6 H Eosinophils % 2.5 Basophils % 0.6 Nucleated Red Blood 0.0 Cells % Immature Granulocytes # 0.030 Neutrophils # 1.3 L Lymphocytes # 1.7 Monocytes # 0.4 Eosinophils # 0.1 Basophils # 0.0 Nucleated Red Blood 0.0 Cells # Sodium Level 141 Potassium Level 3.9 Chloride Level 107 Carbon Dioxide Level 25 Anion Gap 9 Blood Urea Nitrogen 17 Creatinine 0.64 Est Glomerular Filtrat Rate mL/min Glucose Level 145 # Calcium Level 9.0 Bedside Glucose 139 Test 09/13/18 11:32 Bedside Glucose 243 H Medications Medication Current Medications Atorvastatin Calcium (Lipitor) 40 mg QHS PO Last administered on 09/12/18 19:36; Admin Dose 40 MG; Start 09/05/18 at 21:00 Clopidogrel Bisulfate (plaVIX) 75 mg DAILY PO Last administered on 09/13/18 08:10; Admin Dose 75 MG; Start 09/05/18 at 10:00 Dutasteride (Avodart) 0.5 mg DAILY PO Last administered on 09/13/18 08:10; Admin Dose 0.5 MG; Start 09/06/18 at 10:00 Famotidine (Pepcid) 20 mg DAILY PO Last administered on 09/13/18 08:10; Admin Dose 20 MG; Start 09/05/18 at 10:00 Metoprolol Succinate (Toprol Xl) 25 mg DAILY PO Last administered on 09/13/18 08:11; Admin Dose 25 MG; Start 09/05/18 at 10:00 Ranolazine (Ranexa) 1,000 mg Q12 PO Last administered on 09/13/18 08:10; Admin Dose 1,000 MG; Start 09/05/18 at 10:00 Linagliptin (Tradjenta) 5 mg DAILY PO Last administered on 09/13/18 08:11; Admin Dose 5 MG; Start 09/05/18 at 10:00 Diagnostic Test (Pha) (Accu-Chek) 1 ea 02 XX ; Start 09/06/18 at 02:00 Insulin Aspart (Novolog Insulin Pen) 5 unit WITH MEALS SC Last administered on 09/13/18 11:36; Admin Dose 5 UNIT; Start 09/05/18 at 12:00 Enoxaparin Sodium (Lovenox) 30 mg DAILY SC Last administered on 09/13/18 08:18; Admin Dose 30 MG; Start 09/06/18 at 09:00 Losartan Potassium (Cozaar) 12.5 mg DAILY PO Last administered on 09/13/18 08:10; Admin Dose 12.5 MG; Start 09/07/18 at 09:00 Insulin Aspart (Novolog Insulin Pen) NOVOLOG *MILD* ALGORITHM WITH MEALS BEDTIME SC Last administered on 09/13/18 11:36; Admin Dose 3 UNIT; Start 09/07/18 at 18:00 Miscellaneous Information 1 ea NOTE XX ; Start 09/07/18 at 14:00 Glucose (Glutose) 15 gm Q15M PRN PO DECREASED GLUCOSE; Start 09/07/18 at 14:00 Glucose (Glutose) 22.5 gm Q15M PRN PO DECREASED GLUCOSE; Start 09/07/18 at 14:00 Dextrose (D50w Syringe) 25 ml Q15M PRN IV DECREASED GLUCOSE; Start 09/07/18 at 14:00 Dextrose (D50w Syringe) 50 ml Q15M PRN IV DECREASED GLUCOSE; Start 09/07/18 at 14:00 Glucagon (Glucagen) 1 mg Q15M PRN IM DECREASED GLUCOSE; Start 09/07/18 at 14:00 Glucose (Glutose) 15 gm Q15M PRN BUCCAL DECREASED GLUCOSE; Start 09/07/18 at 14:00 Albuterol/ Ipratropium (Duoneb) 3 ml Q6H RESP THERAPY HHN Last administered on 09/13/18 07:21; Admin Dose 3 ML; Start 09/08/18 at 14:00 Docusate Sodium (Colace) 100 mg BID PO Last administered on 09/13/18 08:11; Admin Dose 100 MG; Start 09/11/18 at 21:00 Bisacodyl (Dulcolax) 5 mg DAILY PRN PO CONSTIPATION Last administered on 09/11/18 12:07; Admin Dose 5 MG; Start 09/11/18 at 12:00 Acetaminophen (Tylenol Tab) 650 mg Q6H PRN PO MILD PAIN(1-3)OR ELEVATED TEMP Last administered on 09/12/18 23:59; Admin Dose 650 MG; Start 09/12/18 at 12:00 CRYS MUSA Sep 13, 2018 12:59
[2018-09-13 14:50] VITALS: BP 121/59; PULSE 62; RESP 18
[2018-09-13 20:15] VITALS: BP 110/58; PULSE 66; RESP 18
[2018-09-13] MEDS: ATORVASTATIN 40 MG TAB PO SCH (20:40)
[2018-09-14 01:31] VITALS: BP 135/83; PULSE 68; RESP 18
[2018-09-14] MEDS: ALBUTEROL/IPRATROPIUM (NEB) 3 ML AMP HHN SCH ×4 (01:55→21:45)
[2018-09-14 07:57] VITALS: BP 101/51; PULSE 69; RESP 18
[2018-09-14] MEDS: DUTASTERIDE 0.5 MG CAP PO SCH (09:03)
[2018-09-14] MEDS: DOCUSATE SODIUM 100 MG CAP PO SCH ×2 (09:03→20:35)
[2018-09-14] MEDS: FAMOTIDINE 20 MG TAB PO SCH (09:03)
[2018-09-14] MEDS: LINAGLIPTIN 5 MG TABLET PO SCH (09:03)
[2018-09-14] MEDS: RANOLAZINE (SR) 500 MG TAB PO SCH ×2 (09:04→20:35)
[2018-09-14] MEDS: METOPROLOL (XL) 25 MG TAB PO SCH (09:04)
[2018-09-14] MEDS: CLOPIDOGREL 75 MG TAB PO SCH (09:04)
[2018-09-14] MEDS: LOSARTAN 50 MG TAB PO SCH (09:05)
[2018-09-14] MEDS: INSULIN ASPART [NOVOLOG] 3 ML PEN SC SCH ×7 (09:07→20:36)
[2018-09-14] MEDS: ENOXAPARIN 30 MG/0.3 ML SYG SC SCH (09:08)
--- NOTE | 2018-09-14 15:41 | PN ---
Date/Time of Note Date/Time of Note DATE: 09/14/18 TIME: 15:39 Assessment/Plan VTE Prophylaxis Risk score (from Ns)>0 risk: 4 SCD applied (from [facility]): No SCD contraindicated: patient refusal Pharmacological prophylaxis: LMWH Lines/Catheters IV C[facility] Type (from [facility]): Saline Lock Urinary Cath still in place: No Assessment/Plan Hospital Course Patient denies shortness of breath, pending bone scan at nuclear medicine today. Assessment/Plan - Left bronchiolitis and left lower lobe bronchiectasis. Dr. Valladares is asked to see patient in pulmonology consultation. - Atrial fibrillation with ventricular response, short episode, converted back to sinus rhythm. Dr. Laureano is following in cardiology consultation. - Chest pain most likely related to above, ME ruled out - Coronary artery disease, history of PCI. Continue Plavix. - Diabetes mellitus type 2, continue Tradjenta NovoLog, blood sugar is well controlled. - Hypertension, continue Cozaar - Dyslipidemia, continue statin. - Healed fracture of the lateral left fifth rib per CT. Further recommendations based on clinical course. Plan of care discussed with Susana Thurman. Result Diagram: 09/13/1851709/13/1818 Results 24hrs Laboratory Tests Test 09/13/18 17:53 09/13/18 20:49 09/14/18 08:46 09/14/18 12:32 Bedside Glucose 209 149 160 187 Exam/Review of Systems Exam Vitals Vital Signs Date Temp Pulse Resp B/P (MAP) Pulse Ox O2 O2 Flow FiO2 Time Delivery Rate 09/14/18 71 16 97 21 14:24 09/14/18 98.3 101/51 Room Air 07:57 (68) Intake and Output 09/13/18 09/13/18 09/14/18 1515:00 23:00 07:00 IntakeIntake Total 360 ml 240 ml BalanceBalance 360 ml 240 ml Exam Constitutional: alert, oriented Head: normocephalic Neck: supple Respiratory: clear to auscultation Cardiovascular: regular rate and rhythm Gastrointestinal: soft, non-tender Musculoskeletal: other (Left lower chest pain) Extremities: normal pulses Neurological: nl mental status Results Results 24hrs Laboratory Tests Test 09/13/18 17:53 09/13/18 20:49 09/14/18 08:46 09/14/18 12:32 Bedside Glucose 209 149 160 187 Medications Medication Current Medications Atorvastatin Calcium (Lipitor) 40 mg QHS PO Last administered on 09/13/18 20:40; Admin Dose 40 MG; Start 09/05/18 at 21:00 Clopidogrel Bisulfate (plaVIX) 75 mg DAILY PO Last administered on 09/14/18 09:04; Admin Dose 75 MG; Start 09/05/18 at 10:00 Dutasteride (Avodart) 0.5 mg DAILY PO Last administered on 09/14/18 09:03; Admin Dose 0.5 MG; Start 09/06/18 at 10:00 Famotidine (Pepcid) 20 mg DAILY PO Last administered on 09/14/18 09:03; Admin Dose 20 MG; Start 09/05/18 at 10:00 Metoprolol Succinate (Toprol Xl) 25 mg DAILY PO Last administered on 09/14/18 09:04; Admin Dose 25 MG; Start 09/05/18 at 10:00 Ranolazine (Ranexa) 1,000 mg Q12 PO Last administered on 09/14/18 09:04; Admin Dose 1,000 MG; Start 09/05/18 at 10:00 Linagliptin (Tradjenta) 5 mg DAILY PO Last administered on 09/14/18 09:03; Admin Dose 5 MG; Start 09/05/18 at 10:00 Diagnostic Test (Pha) (Accu-Chek) 1 ea 02 XX ; Start 09/06/18 at 02:00 Insulin Aspart (Novolog Insulin Pen) 5 unit WITH MEALS SC Last administered on 09/14/18 13:08; Admin Dose 5 UNIT; Start 09/05/18 at 12:00 Enoxaparin Sodium (Lovenox) 30 mg DAILY SC Last administered on 09/14/18 09:08; Admin Dose 30 MG; Start 09/06/18 at 09:00 Losartan Potassium (Cozaar) 12.5 mg DAILY PO Last administered on 09/14/18 09: 05; Admin Dose 12.5 MG; Start 09/07/18 at 09:00 Insulin Aspart (Novolog Insulin Pen) NOVOLOG *MILD* ALGORITHM WITH MEALS BEDTIME SC Last administered on 09/14/18 13:09; Admin Dose 2 UNIT; Start at 18:00 Miscellaneous Information 1 ea NOTE XX ; Start 09/07/18 at 14:00 Glucose (Glutose) 15 gm Q15M PRN PO DECREASED GLUCOSE; Start 09/07/18 at 14:00 Glucose (Glutose) 22.5 gm Q15M PRN PO DECREASED GLUCOSE; Start 09/07/18 at 14:00 Dextrose (D50w Syringe) 25 ml Q15M PRN IV DECREASED GLUCOSE; Start 09/07/18 at 14:00 Dextrose (D50w Syringe) 50 ml Q15M PRN IV DECREASED GLUCOSE; Start 09/07/18 at 14:00 Glucagon (Glucagen) 1 mg Q15M PRN IM DECREASED GLUCOSE; Start 09/07/18 at 14:00 Glucose (Glutose) 15 gm Q15M PRN BUCCAL DECREASED GLUCOSE; Start 09/07/18 at 14:00 Albuterol/ Ipratropium (Duoneb) 3 ml Q6H RESP THERAPY HHN Last administered on 09/14/18at 14:24; Admin Dose 3 ML; Start 09/08/18 at 14:00 Docusate Sodium (Colace) 100 mg BID PO Last administered on 09/14/18 09:03; Admin Dose 100 MG; Start 09/11/18 at 21:00 Bisacodyl (Dulcolax) 5 mg DAILY PRN PO CONSTIPATION Last administered on at 12:07; Admin Dose 5 MG; Start 09/11/18 at 12:00 Acetaminophen (Tylenol Tab) 650 mg Q6H PRN PO MILD PAIN(1-3)OR ELEVATED TEMP Last administered on 09/12/18at 23:59; Admin Dose 650 MG; Start 09/12/18 at 12:00 GABINO ALBERT Sep 14, 2018 15:41
--- NOTE | 2018-09-14 16:35 | CONS ---
Consult Date/Type/Reason Admit Date/Time Sep 07, 2018 at 16:34 Initial Consult Date 09/05/18 Type of Consultation: CV Requesting Provider: SAMSON FREEMAN Date/Time of Note DATE: 09/14/18 TIME: 16:33 Subjective Cardiology follow-up progress note Subjective: Discussed with the staff pt is off telemetry reviewed. Patient with no chest pain now Patient WITH one episode of palpitation last night but Telemetry was reviewed no evidence of atrial fibrillation or significant arrhythmia . Blood pressure has been stable now Objective: General: no acute distress HEENT: NC/AT. pupils are equal. round. NECK: NO JVD. no stridor. CV: RRR. systolic murmur; no gallop or rubs. PULM: no wheezing or rhonchi. GI: SOFT, NT, ND, no rebound or guarding Extremity: trace B/L LE edema. no clubbing. neuro: awake and alert, OX3. Psych: Appears anxious but pleasant rectal: deferred : normal Objective Vitals Vital Signs Date Temp Pulse Resp B/P (MAP) Pulse Ox O2 O2 Flow FiO2 Time Delivery Rate 09/14/18 71 16 97 21 14:24 09/14/18 98.3 101/51 Room Air 07:57 (68) Intake and Output 09/13/18 09/13/18 09/14/18 1515:00 23:00 07:00 IntakeIntake Total 360 ml 240 ml BalanceBalance 360 ml 240 ml Results/Medications Result Diagram: 09/13/1818 09/13/1818 Results 24 hrs Laboratory Tests Test 09/13/18 17:53 09/13/18 20:49 09/14/18 08:46 09/14/18 12:32 Bedside Glucose 209 149 160 187 Home Meds Reported Medications Dutasteride* (Avodart*) 0.5 Mg Capsule, 0.5 MG PO DAILY, CAP 04/22/17 Sitagliptin* (Januvia*) 100 Mg Tablet, 100 MG PO DAILY, #30 TAB 04/22/17 Ranolazine* (Ranexa*) 1,000 Mg Tab.sr.12h, 1000 MG PO Q12, TAB 04/22/17 Icosapent Ethyl (VASCEPA) 1 Gm Capsule, 1 GM PO TID, CAP 2/13/18 Canagliflozin/Metformin HCl (Invokamet 150-500 mg Tablet) 1 Each Tablet, 1 EACH PO BID, #60 TAB 04/22/17 Valsartan* (Diovan*) 80 Mg Tablet, 80 MG PO DAILY, TAB 04/22/17 Metoprolol Succinate* (Toprol XL*) 25 Mg Tab.sr.24h, 25 MG PO DAILY, #30 TAB 04/22/17 Isosorbide Mononitrate* (Isosorbide Mononitrate*) 30 Mg Tab.er.24h, 30 MG PO D AILY, TAB 04/22/17 Famotidine* (Famotidine*) 20 Mg Tablet, 20 MG PO DAILY, #30 TAB 04/22/17 Clopidogrel Bisulfate (Clopidogrel) 75 Mg Tablet, 75 MG PO DAILY, #30 TAB 04/22/17 Atorvastatin* (Atorvastatin*) 40 Mg Tablet, 40 MG PO QHS, #30 TAB 04/22/17 Medications Current Medications Atorvastatin Calcium (Lipitor) 40 mg QHS PO Last administered on 09/13/18 20:40; Admin Dose 40 MG; Start 09/05/18 at 21:00 Clopidogrel Bisulfate (plaVIX) 75 mg DAILY PO Last administered on 09/14/18 09:04; Admin Dose 75 MG; Start 09/05/18 at 10:00 Dutasteride (Avodart) 0.5 mg DAILY PO Last administered on 09/14/18 09:03; Admin Dose 0.5 MG; Start 09/06/18 at 10:00 Famotidine (Pepcid) 20 mg DAILY PO Last administered on 09/14/18 09:03; Admin Dose 20 MG; Start 09/05/18 at 10:00 Metoprolol Succinate (Toprol Xl) 25 mg DAILY PO Last administered on 09/14/18 09:04; Admin Dose 25 MG; Start 09/05/18 at 10:00 Ranolazine (Ranexa) 1,000 mg Q12 PO Last administered on 09/14/18 09:04; Admin Dose 1,000 MG; Start 09/05/18 at 10:00 Linagliptin (Tradjenta) 5 mg DAILY PO Last administered on 09/14/18 09:03; Admin Dose 5 MG; Start 09/05/18 at 10:00 Diagnostic Test (Pha) (Accu-Chek) XX ; Start 09/06/18 at 02:00 Insulin Aspart (Novolog Insulin Pen) 5 unit WITH MEALS SC Last administered on 09/14/18at 13:08; Admin Dose 5 UNIT; Start 09/05/18 at 12:00 Enoxaparin Sodium (Lovenox) 30 mg DAILY SC Last administered on 09/14/18 09:08; Admin Dose 30 MG; Start 09/06/18 at 09:00 Losartan Potassium (Cozaar) 12.5 mg DAILY PO Last administered on 09/14/18 09:05; Admin Dose 12.5 MG; Start 09/07/18 at 09:00 Insulin Aspart (Novolog Insulin Pen) NOVOLOG *MILD* ALGORITHM WITH MEALS BEDTIME SC Last administered on 09/14/18 13:09; Admin Dose 2 UNIT; Start 09/07/18 at 18:00 Miscellaneous Information 1 ea NOTE XX ; Start 09/07/18 at 14:00 Glucose (Glutose) 15 gm Q15M PRN PO DECREASED GLUCOSE; Start 09/07/18 at 14:00 Glucose (Glutose) 22.5 gm Q15M PRN PO DECREASED GLUCOSE; Start 09/07/18 at 14:00 Dextrose (D50w Syringe) 25 ml Q15M PRN IV DECREASED GLUCOSE; Start 09/07/18 at 14:00 Dextrose (D50w Syringe) 50 ml Q15M PRN IV DECREASED GLUCOSE; Start 09/07/18 at 14:00 Glucagon (Glucagen) 1 mg Q15M PRN IM DECREASED GLUCOSE; Start 09/07/18 at 14:00 Glucose (Glutose) 15 gm Q15M PRN BUCCAL DECREASED GLUCOSE; Start 09/07/18 at 14:00 Albuterol/ Ipratropium (Duoneb) 3 ml Q6H RESP THERAPY HHN Last administered on 09/14/18at 14:24; Admin Dose 3 ML; Start 09/08/18 at 14:00 Docusate Sodium (Colace) 100 mg BID PO Last administered on 09/14/18at 09:03; Admin Dose 100 MG; Start 09/11/18 at 21:00 Bisacodyl (Dulcolax) 5 mg DAILY PRN PO CONSTIPATION Last administered on 09/11/18at 12:07; Admin Dose 5 MG; Start 09/11/18 at 12:00 Acetaminophen (Tylenol Tab) 650 mg Q6H PRN PO MILD PAIN(1-3)OR ELEVATED TEMP Last administered on 09/12/18at 23:59; Admin Dose 650 MG; Start 09/12/18 at 12:00 Assessment/Plan Hospital Course (Demo Recall) 1. P-Atrial fibrillation with ventricular response: Appears to be short episode has converted back to sinus rhythm. Patient has remained in sinus rhythm now 2. Chest pain most likely related to above in addition to his history of rib fracture after a previous fall 3. Coronary artery disease 4. History of PCI 5. Hypertension 6. Diabetes 7. Dyslipidemia 8. Orthostatic symptoms including dizziness: improved now Recommendation: Continue with the beta-kiana. Continue with antiplatelet with Plavix for now Statin will be continued [place] has been ruled out cont losartan to 12.5 mg qd only given his low blood pressure Echo has already been done as an outpatient in the office that showed normal LV systolic function Diabetic management as per internal medicine Electrolyte to be corrected as needed f/u pulm rec. DC planning when okay from internal medicine standpoint and pulm We will follow-up with patient in the office as scheduled already Thank you for his referral. We will continue to follow along with you as needed over the weekend SURESH WESTBROOK MD [facility] SURESH WESTBROOK MD Sep 14, 2018 16:35
[2018-09-14 20:19] VITALS: BP 123/62; PULSE 65; RESP 18
[2018-09-14] MEDS: ATORVASTATIN 40 MG TAB PO SCH (20:35)
[2018-09-14] MEDS: ACCU-CHEK XX SCH (20:37)
[2018-09-15 02:16] VITALS: BP 109/57; PULSE 85; RESP 17
[2018-09-15] MEDS: ALBUTEROL/IPRATROPIUM (NEB) 3 ML AMP HHN SCH ×3 (02:43→13:52)
[2018-09-15 08:23] VITALS: BP 117/56; PULSE 68; RESP 18
[2018-09-15] MEDS: RANOLAZINE (SR) 500 MG TAB PO SCH (09:05)
[2018-09-15] MEDS: LINAGLIPTIN 5 MG TABLET PO SCH (09:05)
[2018-09-15] MEDS: CLOPIDOGREL 75 MG TAB PO SCH (09:05)
[2018-09-15] MEDS: LOSARTAN 50 MG TAB PO SCH (09:05)
[2018-09-15] MEDS: FAMOTIDINE 20 MG TAB PO SCH (09:05)
[2018-09-15] MEDS: DOCUSATE SODIUM 100 MG CAP PO SCH (09:05)
[2018-09-15] MEDS: DUTASTERIDE 0.5 MG CAP PO SCH (09:06)
[2018-09-15] MEDS: METOPROLOL (XL) 25 MG TAB PO SCH (09:06)
[2018-09-15] MEDS: ENOXAPARIN 30 MG/0.3 ML SYG SC SCH (09:07)
[2018-09-15] MEDS: INSULIN ASPART [NOVOLOG] 3 ML PEN SC SCH ×6 (09:07→17:37)
[2018-09-15 15:29] VITALS: BP 128/62; PULSE 71; RESP 18
--- NOTE | 2018-09-15 16:12 | CONS ---
Consult Date/Type/Reason Admit Date/Time Sep 07, 2018 at 16:34 Initial Consult Date 09/05/18 Type of Consultation: CV Requesting Provider: SAMSON FREEMAN Date/Time of Note DATE: 09/15/18 TIME: 16:11 Subjective Cardiology follow-up progress note Subjective: Discussed with the staff. d/w [employer] pt is off telemetry reviewed. Patient with no chest pain now Patient no more episode of palpitation Blood pressure has been stable now he wants to go home Objective: General: no acute distress HEENT: NC/AT. pupils are equal. round. NECK: NO JVD. no stridor. CV: RRR. systolic murmur; no gallop or rubs. PULM: no wheezing or rhonchi. GI: SOFT, NT, ND, no rebound or guarding Extremity: trace B/L LE edema. no clubbing. neuro: awake and alert, OX3. Psych: Appears anxious but pleasant rectal: deferred : normal Objective Vitals Vital Signs Date Temp Pulse Resp B/P (MAP) Pulse Ox O2 O2 Flow FiO2 Time Delivery Rate 09/15/18 72 18 97 21 13:53 09/15/18 98.0 117/56 Room Air 08:23 (76) Intake and Output 09/14/18 09/14/18 09/15/18 1515:00 23:00 07:00 IntakeIntake Total 1000 ml 200 ml BalanceBalance 1000 ml 200 ml Results/Medications Result Diagram: 09/13/1818 09/13/18 0518 Results 24 hrs Laboratory Tests Test 09/14/18 18:01 09/14/18 20:36 09/15/18 09:03 09/15/18 12:51 Bedside Glucose 163 160 161 156 Home Meds Reported Medications Dutasteride* (Avodart*) 0.5 Mg Capsule, 0.5 MG PO DAILY, CAP 04/22/17 Sitagliptin* (Januvia*) 100 Mg Tablet, 100 MG PO DAILY, #30 TAB 04/22/17 Ranolazine* (Ranexa*) 1,000 Mg Tab.sr.12h, 1000 MG PO Q12, TAB 04/22/17 Icosapent Ethyl (VASCEPA) 1 Gm Capsule, 1 GM PO TID, CAP 04/22/17 Canagliflozin/Metformin HCl (Invokamet 150-500 mg Tablet) 1 Each Tablet, 1 EACH PO BID, #60 TAB 04/22/17 Valsartan* (Diovan*) 80 Mg Tablet, 80 MG PO DAILY, TAB 04/22/17 Metoprolol Succinate* (Toprol XL*) 25 Mg Tab.sr.24h, 25 MG PO DAILY, #30 TAB 04/22/17 Isosorbide Mononitrate* (Isosorbide Mononitrate*) 30 Mg Tab.er.24h, 30 MG PO DAILY, TAB 04/22/17 Famotidine* (Famotidine*) 20 Mg Tablet, 20 MG PO DAILY, #30 TAB 04/22/17 Clopidogrel Bisulfate (Clopidogrel) 75 Mg Tablet, 75 MG PO DAILY, #30 TAB 04/22/17 Atorvastatin* (Atorvastatin*) 40 Mg Tablet, 40 MG PO QHS, #30 TAB 04/22/17 Medications Current Medications Atorvastatin Calcium (Lipitor) 40 mg QHS PO Last administered on 09/14/18at 20:35; Admin Dose 40 MG; Start 09/05/18 at 21:00 Clopidogrel Bisulfate (plaVIX) 75 mg DAILY PO Last administered on 09/15/18 09:05; Admin Dose 75 MG; Start 09/05/18 at 10:00 Dutasteride (Avodart) 0.5 mg DAILY PO Last administered on 09/15/18 09:06; Admin Dose 0.5 MG; Start 09/06/18 at 10:00 Famotidine (Pepcid) 20 mg DAILY PO Last administered on 09/15/18 09:05; Admin Dose 20 MG; Start 09/05/18 at 10:00 Metoprolol Succinate (Toprol Xl) 25 mg DAILY PO Last administered on 09/15/18 09:06; Admin Dose 25 MG; Start 09/05/18 at 10:00 Ranolazine (Ranexa) 1,000 mg Q12 PO Last administered on 09/15/18 09:05; Admin Dose 1,000 MG; Start 09/05/18 at 10:00 Linagliptin (Tradjenta) 5 mg DAILY PO Last administered on 09/15/18 09:05; Admin Dose 5 MG; Start 09/05/18 at 10:00 Diagnostic Test (Pha) (Accu-Chek) 1 ea 02 XX ; Start 09/06/18 at 02:00 Insulin Aspart (Novolog Insulin Pen) 5 unit WITH MEALS SC Last administered on 09/15/18at 12:55; Admin Dose 5 UNIT; Start 09/05/18 at 12:00 Enoxaparin Sodium (Lovenox) 30 mg DAILY SC Last administered on 09/15/18at 09:07; Admin Dose 30 MG; Start 09/06/18 at 09:00 Losartan Potassium (Cozaar) 12.5 mg DAILY PO Last administered on 09/15/18at 09:05; Admin Dose 12.5 MG; Start 09/07/18 at 09:00 Insulin Aspart (Novolog Insulin Pen) NOVOLOG *MILD* ALGORITHM WITH MEALS B EDTIME SC Last administered on 09/15/18at 12:54; Admin Dose 1 UNIT; Start 09/07/18 at 18:00 Miscellaneous Information 1 ea NOTE XX ; Start 09/07/18 at 14:00 Glucose (Glutose) 15 gm Q15M PRN PO DECREASED GLUCOSE; Start 09/07/18 at 14:00 Glucose (Glutose) 22.5 gm Q15M PRN PO DECREASED GLUCOSE; Start 09/07/18 at 14:00 Dextrose (D50w Syringe) 25 ml Q15M PRN IV DECREASED GLUCOSE; Start 09/07/18 at 14:00 Dextrose (D50w Syringe) 50 ml Q15M PRN IV DECREASED GLUCOSE; Start 09/07/18 at 14:00 Glucagon (Glucagen) 1 mg Q15M PRN IM DECREASED GLUCOSE; Start 09/07/18 at 14:00 Glucose (Glutose) 15 gm Q15M PRN BUCCAL DECREASED GLUCOSE; Start 09/07/18 at 14:00 Albuterol/ Ipratropium (Duoneb) 3 ml Q6H RESP THERAPY HHN Last administered on 09/15/18at 13:52; Admin Dose 3 ML; Start 09/08/18 at 14:00 Docusate Sodium (Colace) 100 mg BID PO Last administered on 09/15/18at 09:05; Admin Dose 100 MG; Start 09/11/18 at 21:00 Bisacodyl (Dulcolax) 5 mg DAILY PRN PO CONSTIPATION Last administered on 09/11/18at 12:07; Admin Dose 5 MG; Start 7/5/19 at 12:00 Acetaminophen (Tylenol Tab) 650 mg Q6H PRN PO MILD PAIN(1-3)OR ELEVATED TEMP Last administered on 09/12/18at 23:59; Admin Dose 650 MG; Start 09/12/18 at 12:00 Assessment/Plan Hospital Course (Demo Recall) 1. P-Atrial fibrillation with ventricular response: Appears to be short episode has converted back to sinus rhythm. Patient has remained in sinus rhythm now 2. Chest pain most likely related to above in addition to his history of rib fracture after a previous fall 3. Coronary artery disease 4. History of PCI 5. Hypertension 6. Diabetes 7. Dyslipidemia 8. Orthostatic symptoms including dizziness: improved now Recommendation: Continue with the beta-kiana. Continue with antiplatelet with Plavix for now Statin will be continued OR has been ruled out cont losartan to 12.5 mg qd only given his low blood pressure Echo has already been done as an outpatient in the office that showed normal LV systolic function Diabetic management as per internal medicine Electrolyte to be corrected as needed f/u pulm rec. DC planning when okay from internal medicine standpoint and pulm We will follow-up with patient in the office as scheduled already Thank you for his referral. We will continue to follow along with you SURESH WESTBROOK MD [facility] SURESH WESTBROOK MD Sep 15, 2018 16:12
--- NOTE | 2018-09-21 09:55 | DS ---
Date/Time of Note Date/Time of Note DATE: 09/21/18 TIME: 09:51 Discharge Summary Admission/Discharge Info Admit Date/Time Sep 07, 2018 at 16:34 Discharge Date/Time Sep 15, 2018 at 18:37 Patient Condition: Stable Hx of Present Illness Patient with hypertension, hypercholesterolemia, diabetes with history of coronary artery disease comes in to the emergency with pressure chest pain x1d. Patient has had previous admissions for the same and was treated with angioplasty and stent placement in the past. Patient currently denies any chest pain. Hospital Course - Left bronchiolitis and left lower lobe bronchiectasis. QFT gold is neg. Dr. Valladares is following in pulmonology consultation. - Atrial fibrillation with ventricular response, short episode, converted back to sinus rhythm. Dr. Laureano is following in cardiology consultation. - Atypical Chest pain most likely related to above, resolved, [place] ruled out, bone scan is negative. - Coronary artery disease, history of PCI. Continue Plavix. - Diabetes mellitus type 2, continue Tradjenta NovoLog, blood sugar is well controlled. - Hypertension, continue Cozaar - Dyslipidemia, continue statin. - Healed fracture of the lateral left fifth rib per CT. Plan of care discussed with Dr. Thurman. Home Meds Reported Medications Dutasteride* (Avodart*) 0.5 Mg Capsule, 0.5 MG PO DAILY, CAP 04/22/17 Sitagliptin* (Januvia*) 100 Mg Tablet, 100 MG PO DAILY, #30 TAB 04/22/17 Ranolazine* (Ranexa*) 1,000 Mg Tab.sr.12h, 1000 MG PO Q12, TAB 04/22/17 Icosapent Ethyl (VASCEPA) 1 Gm Capsule, 1 GM PO TID, CAP 04/22/17 Canagliflozin/Metformin HCl (Invokamet 150-500 mg Tablet) 1 Each Tablet, 1 EACH PO BID, #60 TAB 04/22/17 Valsartan* (Diovan*) 80 Mg Tablet, 80 MG PO DAILY, TAB 04/22/17 Metoprolol Succinate* (Toprol XL*) 25 Mg Tab.sr.24h, 25 MG PO DAILY, #30 TAB 04/22/17 Isosorbide Mononitrate* (Isosorbide Mononitrate*) 30 Mg Tab.er.24h, 30 MG PO DAILY, TAB 04/22/17 Famotidine* (Famotidine*) 20 Mg Tablet, 20 MG PO DAILY, #30 TAB 04/22/17 Clopidogrel Bisulfate (Clopidogrel) 75 Mg Tablet, 75 MG PO DAILY, #30 TAB 04/22/17 Atorvastatin* (Atorvastatin*) 40 Mg Tablet, 40 MG PO QHS, #30 TAB 04/22/17 Follow-up Plan Follow-up with Dr. Valladares, pulmonology in 2 weeks Primary Care Provider Not On Staff Doctor Time spent on discharge: > 30 minutes GABINO ALBERT Sep 21, 2018 09:55
== END 2018-09-15 18:37 | disposition home or self-care (01) | DRG 309 ==
LOC: E/R 21:51 → 6WM 09-05 01:41 → OBSVTOIN 09-05 11:01 → INTOOBSV 09-05 11:01 → OBSVTOIN 09-07 16:34 → MS1 09-13 14:29
PROVIDERS: ADMIT Internal Medicine; ATTEND Internal Medicine
DX: I48.91 Unspecified atrial fibrillation (principal); J21.9 Acute bronchiolitis, unspecified; R07.9 Chest pain, unspecified; E11.9 Type 2 diabetes mellitus without complications; I10 Essential (primary) hypertension; E78.00 Pure hypercholesterolemia, unspecified; Z95.5 Presence of coronary angioplasty implant and graft; R42 Dizziness and giddiness; J47.9 Bronchiectasis, uncomplicated
CPT/HCPCS: 36415; 70450; 71045; 71110; 71250; 78306; 80048; 80053; 80061; 82550; 82553; 82784; 82785; 82962; 83036; 83735; 83880; 84439; 84443; 84484; 85025; 85610; 86480; 86635; 93005; 94640; 94664; 97161; 99217; A9503; G0378; J1644; J1650; J1815; J7040